=== PATIENT | female | born 1960 | race Hispanic/Latino ===

== ENCOUNTER 2019-04-20 11:38 | Inpatient (IN) | payer SELFPAY ==
[2019-04-20] MEDS ORDERED: LORazepam 2 MG/ML VIAL ONE (12:01)
[2019-04-20] MEDS ORDERED: NA CHLORIDE 0.9% 1,000 ML ONE ×3 (12:02→17:53)
[2019-04-20 12:12] LABS: Protime INR 1.18
--- NOTE | 2019-04-20 12:23 | RAD REPORT ---
EXAM DESCRIPTION: CT - Head Brain Wo Cont - 04/20/2019 12:11 pm CLINICAL HISTORY: Alteration of awareness/confusion COMPARISON: 2017 TECHNIQUE: Computed axial tomography of the head was obtained. IV contrast was not requested. All CT scans are performed using dose optimization technique as appropriate and may include automated exposure control or mA/KV adjustment according to patient size. FINDINGS: An intracranial bleed is not seen . The ventricles are normal in caliber. No extra-axial fluid collection is noted. Fluid within the sinuses/ mastoids is not seen. IMPRESSION: No acute intracranial abnormality is seen. If patient's symptoms persist MRI of the bra in would be recommended.
[2019-04-20 12:33] LABS: Salicylates Level 8.7 mg/dL (2.8-20)
[2019-04-20 12:38] LABS: Arterial Blood Carboxyhemoglob 1.4 % (0-1.5); Blood Gas Oxyhemoglobin 93.8 % (94-97); Blood O2 Saturation 95.9 % (92-98.5)
[2019-04-20 12:45] LABS: Barbiturates NEGATIVE (NEGATIVE); Benzodiazepines NEGATIVE (NEGATIVE); Cocaine NEGATIVE (NEGATIVE); METHAMPHETAM NEGATIVE (NEGATIVE); Methadone NEGATIVE (NEGATIVE); Opiates NEGATIVE (NEGATIVE); Phencyclidine NEGATIVE (NEGATIVE); THC Cannibis NEGATIVE (NEGATIVE)
[2019-04-20 13:02] LABS: Absolute Lymphocytes (CBC) 1.7 K/uL (0.7-4.9); Basophils % 0.5 % (0-1.3); Hematocrit 42.7 % (36.0-45.0); Lymphocytes % 8.9 % (15.3-44.8); MPV 9.3 fL (7.6-11.3); RBC Red Blood Cell Count 4.49 M/uL (3.86-4.86)
[2019-04-20 13:11] LABS: ALT/SGPT 32 U/L (12-78); Albumin 3.3 g/dL (3.4-5.0); Alkaline Phosphatase 457 U/L (45-117); BUN Blood Urea Nitrogen 23 mg/dL (7-18); Bicarbonate 27 mmol/L (21-32); Potassium 3.3 mmol/L (3.5-5.1); Protein, Total 8.6 g/dL (6.4-8.2); Sodium Level 143 mmol/L (136-145); Troponin (Emerg Dept Use Only) < 0.02 ng/mL (0.0-0.045)
[2019-04-20 13:21] LABS: AST/SGOT 37 U/L (15-37); Bilirubin Direct 0.5 mg/dL (0-0.2); Creatine Phosphokinase 596 U/L (26-192)
[2019-04-20 13:25] LABS: Glucose Level 452 mg/dL (74-106)
[2019-04-20] MEDS ORDERED: CEFEPIME 1 GM/100 ML BAG IV ONE (13:37)
[2019-04-20 13:53] LABS: Urine Blood TRACE (NEG); Urine Glucose 2+ (NEG); Urine Protein 2+ (NEG); Urine Specific Gravity 1.015 (1.005-1.030)
[2019-04-20 13:54] LABS: Blood Morphology Comment NOT SEEN (NOT SEEN); Platelet Estimate ADEQ; Urine White Blood Cell Casts OK
--- NOTE | 2019-04-20 13:54 | EDPHYS ---
Physician Documentation [facility] Name: Ebony Smith Age: 58 yrs Sex: Female : 1960 Arrival Date: 04/20/2019 Time: 11:47 Bed 7 Private MD: ED Physician Jaime Lovett HPI: 04/20 13:51 This 58 yrs old Female presents to ER via EMS with complaints of Altered jr8 Mental Status. 13:51 The patient presents with decreased mental status. Onset: The symptoms/episode jr8 began/occurred today. Possible causes: CVA or TIA, drug use, head injury, seizure, sepsis. Associated signs and symptoms: Pertinent positives: nausea, vomiting, Pertinent negatives: abdominal pain, combativeness, diaphoresis, diarrhea. Current symptoms: In the emergency department the patient's symptoms are unchanged from the initial presentation. Patient's baseline: Neuro: alert and fully oriented, The patient has a previous history of bipolar, schizophrenia, seizures. EMS states that family on scene had reported for the last five days she had not been acting herself, vomiting after eating. Upon EMS arrival pt was acting "stubborn" but was speaking and interacting with them, just before arrival pt stopped speaking and began looking around room and having facial twitches.. Historical: - Allergies: 11:52 No Known Allergies; jl7 - Home Meds: 11:52 divalproex 500 mg Oral Tb24 2 tabs at bedtime [Active]; lithium carbonate 450 mg Oral jl7 TbER [Active]; quetiapine 400 mg Oral tab [Active]; - PMHx: 11:52 Bipolar disorder; Schizophrenia; Seizures; jl7 - PSHx: 11:52 Tubal ligation; jl7 - Immunization history:: Adult Immunizations unknown. - Social history:: Smoking status: unknown. - Ebola Screening: : No symptoms or risks identified at this time. ROS: 13:51 Unable to obtain ROS due to altered mental status, patient being uncooperative, pt not jr8 speaking. Exam: 13:51 Constitutional: This is a well developed, well nourished patient who is awake, but jr8 will not respond verbally although eyes open, looking around room Head/Face: Normocephalic, atraumatic. Eyes: Pupils equal round and reactive to light, extra-ocular motions intact. Lids and lashes normal. Conjunctiva and sclera are non-icteric and not injected. Cornea within normal limits. Periorbital areas with no swelling, redness, or edema. Neck: Trachea midline, no thyromegaly or masses palpated, and no cervical lymphadenopathy. Supple, full range of motion without nuchal rigidity, or vertebral point tenderness. No Meningismus. Chest/axilla: Normal chest wall appearance and motion. Nontender with no deformity. No lesions are appreciated. Cardiovascular: Regular rate and rhythm with a normal S1 and S2. No gallops, murmurs, or rubs. Normal PMI, no JVD. No pulse deficits. Respiratory: Lungs have equal breath sounds bilaterally, clear to auscultation and percussion. No rales, rhonchi or wheezes noted. No increased work of breathing, no retractions or nasal flaring. Abdomen/GI: Soft, non-tender, with normal bowel sounds. No distension or tympany. No guarding or rebound. No evidence of tenderness throughout. Back: No spinal tenderness. No costovertebral tenderness. Full range of motion. MS/ Extremity: Pulses equal, no cyanosis. Neurovascular intact. Neuro: Awake and alert, Looking around exam room, responds to pain, closes eyes with approriate stimulus. Does not appear to be able or willing to follow verbal commands Vital Signs: 11:52 BP 131 / 85; Pulse 66; Resp 15 S; Pulse Ox 98% on R/A; jl7 12:30 BP 158 / 80; Pulse 66; Resp 16 S; Temp 98.2(TE); Pulse Ox 97% on R/A; ch 13:00 BP 124 / 92; Pulse 67; Resp 16 S; Pulse Ox 97% on R/A; ch 14:11 BP 151 / 76; Pulse 68; Resp 17; Pulse Ox 97% on R/A; ch 14:30 BP 146 / 66; Pulse 66; Resp 17 S; Pulse Ox 96% on R/A; jl7 15:15 BP 132 / 71; Pulse 66; Resp 16 S; Pulse Ox 97% on R/A; jl7 MDM: 11:47 Patient medically screened. jr8 13:50 Data reviewed: vital signs, nurses notes, lab test result(s), EKG, radiologic studies, jr8 CT scan, plain films. Data interpreted: Pulse oximetry: on room air is 98 %. Interpretation: normal. Counseling: I had a detailed discussion with the patient and/or guardian regarding: the historical points, exam findings, and any diagnostic results supporting the discharge/admit diagnosis, lab results, radiology results, the need for further work-up and treatment in the hospital. 04/20 11:48 Order name: Depakote; Complete Time: 13:40 04/20 11:48 Order name: [place]; Complete Time: 13:04/20 11:48 Order name: Acetaminophen; Complete Time: 13:04/20 11:48 Order name: Basic Metabolic Panel; Complete Time: 13:04/20 11:48 Order name: CBC with Diff; Complete Time: 13:58 04/20 11:48 Order name: ETOH Level; Complete Time: 13:04/20 11:48 Order name: Hepatic Function; Complete Time: 13:04/20 11:48 Order name: PT-INR; Complete Time: 12:04/20 11:48 Order name: Ptt, Activated; Complete Time: 12:04/20 11:48 Order name: Salicylate; Complete Time: 13:35 04/20 11:48 Order name: Urine Drug Screen; Complete Time: 12:49 04/20 11:48 Order name: Troponin (emerg Dept Use Only); Complete Time: 13:40 04/20 11:48 Order name: CK; Complete Time: 13:40 04/20 11:48 Order name: Procalcitonin; Complete Time: 13:00 04/20 11:48 Order name: CT Head Brain wo Cont; Complete Time: 12:40 04/20 11:48 Order name: Lactate; Complete Time: 13:23 04/20 11:48 Order name: Osmolality, Serum; Complete Time: 13:04/20 11:48 Order name: Ketone, Serum; Complete Time: 13:40 04/20 11:48 Order name: ABG; Complete Time: 13:35 04/20 11:54 Order name: glucometer results - FOR PT WITH NO ID jl7 04/20 11:59 Order name: Glucose, Ancillary Testing EDMS 04/20 12:54 Order name: Urine Dipstick--Ancillary (enter results); Complete Time: 13:58 04/20 13:07 Order name: CBC Smear Scan; Complete Time: 13:58 [facility] 04/20 13:25 Order name: Blood Culture Adult (2) [facility] 04/20 13:25 Order name: Urine Microscopic Only; Complete Time: 14:43 [facility] 04/20 13:26 Order name: XRAY Chest (1 view); Complete Time: 15:15 [facility] 04/20 15:34 Order name: Ammonia [facility] 04/20 15:38 Order name: Urinalysis [facility] 04/20 17:07 Order name: Glucose, Ancillary Testing [facility] 04/20 18:02 Order name: Lactate Sepsis 2 HR Follow-up [facility] 04/20 11:48 Order name: EKG; Complete Time: 11:50 [facility] 04/20 11:48 Order name: EKG - Nurse/Tech; Complete Time: 13:03 [facility] 04/20 11:48 Order name: IV Saline Lock; Complete Time: 12:54 [facility] 04/20 11:48 Order name: Labs collected and sent; Complete Time: 12:54 [facility] 04/20 11:48 Order name: Urine Dipstick-Ancillary (obtain specimen); Complete Time: 12:55 [facility] 04/20 12:18 Order name: Labs - recollect needed; Complete Time: 13:03 04/20 13:41 Order name: CT Abd/Pelvis - Without Contrast; Complete Time: 15:10 [facility] 04/20 15:34 Order name: NPO [facility] Administered Medications: 12:20 Drug: NS 0.9% 1000 ml Route: IV; Rate: 1000 ml; Site: right antecubital; jl7 13:45 Follow up: Response: No adverse reaction; IV Status: Completed infusion; IV Intake: jl7 1000ml 12:25 Drug: Ativan 1 mg Route: IVP; Site: right antecubital; jl7 13:23 Follow up: Response: No adverse reaction jl7 13:26 Drug: NS 0.9% 1000 ml Route: IV; Rate: 1000 ml; Site: right antecubital; jl7 14:30 Follow up: Response: No adverse reaction; IV Status: Completed infusion; IV Intake: jl7 1000ml 13:35 Drug: Cefepime 1 grams Route: IVPB; Rate: 200 ml/hr; Infused Over: 30 mins; Site: right jl7 antecubital; 14:15 Follow up: Response: No adverse reaction; IV Status: Completed infusion jl7 14:22 Drug: NS 0.9% with KCl 20 mEq/L 1000 ml Route: IV; Rate: 500 ml/hr; Site: right jl7 antecubital; 16:30 Follow up: Response: No adverse reaction; IV Status: Completed infusion; IV Intake: jl7 1000ml 14:54 Drug: vancoMYCIN 1 grams Route: IVPB; Infused Over: 2 hrs; Site: right antecubital; jl7 17:00 Follow up: Response: No adverse reaction; IV Status: Completed infusion; IV Intake: jl7 250ml Disposition: 04/20/19 13:53 Hospitalization ordered by Janine Champagne for Inpatient Admission. Preliminary diagnosis are Altered mental status, unspecified, [place] Toxicity , Other sepsis, Acute kidney failure. - Bed requested for Intensive Care Unit. - Status is Inpatient Admission. lp1 - Condition is Fair. - Problem is new. - Symptoms are unchanged. UTI on Admission? No Addendum: 04/22/2019 08:39 Co-signature as Attending Physician, Jaime Lovett MD I agree with the assessment and c carrillo plan of care. Signatures: Dispatcher [employer] Swathi Kong, MARTINE RN Jaime Duran MD MD cha Pena, Laura, RN RN lp1 Salbador Oh PA PA jr8 Samira Pereyra RN RN jl7 Ashleigh Murphy Corrections: (The following items were deleted from the chart) 04/20 13:59 13:53 Hospitalization Ordered by Janine Champagne MD for Inpatient Admission. Preliminary jr8 diagnosis is Altered mental status, unspecified; [place] Toxicity ; Other sepsis. Bed requested for Intensive Care Unit. Status is Inpatient Admission. Condition is Fair. Problem is new. Symptoms are unchanged. UTI on Admission? No. jr8 14:00 13:59 04/20/2019 13:53 Hospitalization Ordered by Janine Champagne MD for Inpatient eb Admission. Preliminary diagnosis is Altered mental status, unspecified; [place] Toxicity ; Other sepsis; Acute kidney failure. Bed requested for Intensive Care Unit. Status is Inpatient Admission. Condition is Fair. Problem is new. Symptoms are unchanged. UTI on Admission? No. jr8 14:43 14:00 04/20/2019 13:53 Hospitalization Ordered by Janine Champagne MD for Inpatient jr8 Admission. Preliminary diagnosis is Altered mental status, unspecified; [place] Toxicity ; Other sepsis; Acute kidney failure. Bed requested for Intensive Care Unit. Status is Inpatient Admission. Condition is Fair. Problem is new. Symptoms are unchanged. UTI on Admission? No. eb 15:58 14:43 04/20/2019 13:53 Hospitalization Ordered by Janine Champagne MD for Inpatient eb Admission. Preliminary diagnosis is Altered mental status, unspecified; [place] Toxicity ; Other sepsis; Acute kidney failure. Bed requested for Intensive Care Unit. Status is Inpatient Admission. Condition is Fair. Problem is new. Symptoms are unchanged. UTI on Admission? No. jr8 15:58 15:58 04/20/2019 13:53 Hospitalization Ordered by Janine Champagne MD for Inpatient eb Admission. Preliminary diagnosis is Altered mental status, unspecified; [place] Toxicity ; Other sepsis; Acute kidney failure. Bed requested for [facility] ER HOLD. Status is Inpatient Admission. Condition is Fair. Problem is new. Symptoms are unchanged. UTI on Admission? No. eb 18:53 15:58 04/20/2019 13:53 Hospitalization Ordered by Janine Champagne MD for Inpatient dw Admission. Preliminary diagnosis is Altered mental status, unspecified; [place] Toxicity ; Other sepsis; Acute kidney failure. Bed requested for [facility] ER HOLD. Status is Inpatient Admission. Condition is Fair. Problem is new. Symptoms are unchanged. UTI on Admission? No. eb 19:35 18:53 04/20/2019 13:53 Hospitalization Ordered by Janine Champagne MD for Inpatient lp1 Admission. Preliminary diagnosis is Altered mental status, unspecified; [place] Toxicity ; Other sepsis; Acute kidney failure. Bed requested for Intensive Care Unit. Status is Inpatient Admission. Condition is Fair. Problem is new. Symptoms are unchanged. UTI on Admission? No. dw
--- NOTE | 2019-04-20 13:54 | ER ---
Nurse's Notes [facility] Name: Ebony Smith Age: 58 yrs Sex: Female : 1960 Arrival Date: 04/20/2019 Time: 11:47 Bed 7 Private MD: Diagnosis: Altered mental status, unspecified;[place] Toxicity ;Other sepsis;Acute kidney failure Presentation: 04/20 11:49 Presenting complaint: EMS states: Pt's reports she has been laying in bed for 5 jl7 days, she will eat but throws up, does not verbally respond. Transition of care: patient was not received from another setting of care. Onset of symptoms was April 15, 2019. Risk Assessment: Do you want to hurt yourself or someone else? Unable to obtain. Initial Sepsis Screen: Does the patient meet any 2 criteria? Altered Mental Status. No. Patient's initial sepsis screen is negative. Does the patient have a suspected source of infection? No. Patient's initial sepsis screen is negative. Care prior to arrival: None. 11:49 Method Of Arrival: EMS: [facility] 11:49 Acuity: SOILA 2 jl7 Triage Assessment: 11:54 General: Appears ill, Behavior is agitated, restless, uncooperative, Pt appears to jl shake intermittently, pulls away from painful stimuli, stares wide-eyed but does not respond verbally. . Pain: Unable to use pain scale. Neuro: Level of Consciousness is awake, Pupils are PERRLA. Cardiovascular: Patient's skin is warm and dry. Respiratory: Airway is patent Respiratory effort is even, unlabored, Respiratory pattern is regular, symmetrical. GI: Abdomen is round non-distended. Historical: - Allergies: 11:52 No Known Allergies; jl7 - Home Meds: 11:52 divalproex 500 mg Oral Tb24 2 tabs at bedtime [Active]; lithium carbonate 450 mg Oral jl7 TbER [Active]; quetiapine 400 mg Oral tab [Active]; - PMHx: 11:52 Bipolar disorder; Schizophrenia; Seizures; jl7 - PSHx: 11:52 Tubal ligation; jl7 - Immunization history:: Adult Immunizations unknown. - Social history:: Smoking status: unknown. - Ebola Screening: : No symptoms or risks identified at this time. Screenin:52 Abuse screen: unable to obtain. Nutritional screening: unable to obtain. Tuberculosis [facility] screening: No symptoms or risk factors identified. Fall Risk Secondary diagnosis (15 points) seizures, IV access (20 points). Ambulatory Aid- None/Bed Rest/Nurse Assist (0 pts). Gait- Weak (10 pts.). Mental Status- Overestimates/Forgets Limitations (15 pts.). Total Oliveira Fall Scale indicates High Risk Score (45 or more points). Fall prevention measures have been instituted. Side Rails Up X 2 Placed Close to Nursing Station Frequent Obs/Assessments Occuring As available patient and family educated on Fall Prevention Program and Strategies. Assessment: 12:00 General: See triage assessment. [facility] 13:00 Reassessment: Patient appears in no apparent distress at this time. No changes from [facility] previously documented assessment. Patient and/or family updated on plan of care and expected duration. Pain level reassessed. Patient states symptoms have not improved. 14:30 Reassessment: Pt returned from [place], MARTINE Mercado, [facility], technology strategist and MARTINE Hogan at [facility] bedside to place Ardon. Pt appears agitated, eyes wide, attempting to grab at staff, VO for 1 mg Ativan IV administered with good results. 15:30 Reassessment: Pt laying in bed, eyes open, no verbal responses at this time. [facility] 16:00 Reassessment: Pt admitted to ER hold, see further documentation in [facility]. [facility] Vital Signs: 11:52 BP 131 / 85; Pulse 66; Resp 15 S; Pulse Ox 98% on R/A; jl7 12:30 BP 158 / 80; Pulse 66; Resp 16 S; Temp 98.2(TE); Pulse Ox 97% on R/A; ch 13:00 BP 124 / 92; Pulse 67; Resp 16 S; Pulse Ox 97% on R/A; ch 14:11 BP 151 / 76; Pulse 68; Resp 17; Pulse Ox 97% on R/A; ch 14:30 BP 146 / 66; Pulse 66; Resp 17 S; Pulse Ox 96% on R/A; jl7 15:15 BP 132 / 71; Pulse 66; Resp 16 S; Pulse Ox 97% on R/A; 7 ED Course: 11:47 Patient arrived in ED. ss 11:47 Salbador Oh PA is PHCP. jr8 11:47 Jaime Lovett MD is Attending Physician. jr8 11:49 Samira Pereyra, RN is Primary Nurse. jl7 11:51 Triage completed. jl7 11:52 Arm band placed on right wrist. jl7 11:52 Patient has correct armband on for positive identification. Placed in gown. Bed in low jl7 position. Call light in reach. Side rails up X2. Seizure precautions initiated. monitoring engineer on. Pulse ox on. NIBP on. Warm blanket given. 12:00 Initial lab(s) drawn, by ED staff, sent to lab. Urine collected: Ardon catheter jl7 specimen, clear. Inserted saline lock: 18 gauge in right antecubital area, using aseptic technique. Blood collected. 12:11 CT completed. Patient tolerated procedure well. Patient moved back from CT. bq 12:12 CT Head Brain wo Cont In Process Unspecified. EDMS 12:27 Ardon cath inserted, using sterile technique, 16 Fr., by technology strategist, balloon inflated, to jl7 gravity drainage, urine specimen collected. 13:03 EKG done, by ED staff, reviewed by Jaime Lovett MD. ms 13:10 Lab(s) recollected, by me, sent to lab. jl7 13:42 XRAY Chest (1 view) In Process Unspecified. EDMS 13:51 Janine Champagne MD is Hospitalizing Provider. jr8 14:10 CT completed. Patient moved to radiology. bq 14:13 CT Abd/Pelvis - Without Contrast In Process Unspecified. EDMS 19:00 No provider procedures requiring assistance completed. Patient admitted, IV remains in jl7 place. intact, No redness/swelling at site. 19:04 Primary Nurse role handed off by Samira Pereyra, RN ch Administered Medications: 12:20 Drug: NS 0.9% 1000 ml Route: IV; Rate: 1000 ml; Site: right antecubital; jl7 13:45 Follow up: Response: No adverse reaction; IV Status: Completed infusion; IV Intake: jl7 1000ml 12:25 Drug: Ativan 1 mg Route: IVP; Site: right antecubital; jl7 13:23 Follow up: Response: No adverse reaction jl7 13:26 Drug: NS 0.9% 1000 ml Route: IV; Rate: 1000 ml; Site: right antecubital; jl7 14:30 Follow up: Response: No adverse reaction; IV Status: Completed infusion; IV Intake: jl7 1000ml 13:35 Drug: Cefepime 1 grams Route: IVPB; Rate: 200 ml/hr; Infused Over: 30 mins; Site: right jl7 antecubital; 14:15 Follow up: Response: No adverse reaction; IV Status: Completed infusion jl7 14:22 Drug: NS 0.9% with KCl 20 mEq/L 1000 ml Route: IV; Rate: 500 ml/hr; Site: right jl7 antecubital; 16:30 Follow up: Response: No adverse reaction; IV Status: Completed infusion; IV Intake: jl7 1000ml 14:54 Drug: vancoMYCIN 1 grams Route: IVPB; Infused Over: 2 hrs; Site: right antecubital; jl7 17:00 Follow up: Response: No adverse reaction; IV Status: Completed infusion; IV Intake: jl7 250ml Intake: 13:45 IV: 1000ml; Total: 1000ml. jl7 14:30 IV: 1000ml; Total: 2000ml. jl7 16:30 IV: 1000ml; Total: 3000ml. jl7 17:00 IV: 250ml; Total: 3250ml. jl7 Outcome: 13:53 Decision to Hospitalize by Provider. jr8 19:00 Admitted to ICU accompanied by nurse, via stretcher, room 6, on monitor, with chart, jl7 Report called to ICU Nurse 19:00 Condition: stable 19:00 Discharge instructions given to patient, Instructed on the need for admit, Demonstrated understanding of pt unable to verbalize understanding at this time. 19:35 Patient left the ED. lp1 Signatures: Dispatcher [employer] EDMS Jess Starks, RN RN Ary Espino Maria ms Smirch, Shelby, RN Renay Campbell RN RN lp1 Salbador Oh PA PA jr8 Samira Pereyra RN RN jl7 Corrections: (The following items were deleted from the chart) 14:11 12:00 General: See triage assessment. [email or web address] 14:11 13:00 Reassessment: Patient appears in no apparent distress at this time. No changes jl7 from previously documented assessment. Patient and/or family updated on plan of care and expected duration. Pain level reassessed. Patient states symptoms have not improved. ch
[2019-04-20] MEDS ORDERED: NS KCL 20MEQ 1,000 ML IV ONE (13:59)
[2019-04-20 14:00] LABS: Urine Bacteria <20 /HPF (<20); Urine RBC <5 /HPF (NONE SEEN)
[2019-04-20 14:01] LABS: Urine Culture Reflex Order NOT NEEDED
--- NOTE | 2019-04-20 14:48 | RAD REPORT ---
EXAM DESCRIPTION: CT - Abdomen Pelvis Wo Contrast - 04/20/2019 2:13 pm CLINICAL HISTORY: Abdominal pain sepsis COMPARISON: 2017 TECHNIQUE: Computed axial tomography of the abdomen and pelvis was obtained. IV and oral contrast we re not requested. All CT scans are performed using dose optimization technique as appropriate and may include automated exposure control or mA/KV adjustment according to patient size. FINDINGS: The evaluation of solid organs, vessels and bowel is limited secondary to the lack of con trast administration. Fatty liver. Mild hepatomegaly Spleen, pancreas, adrenals and kidneys appear grossly normal. The appendix is normal. There is no evidence of diverticulitis. Ardon catheter in place IMPRESSION: Fatty liver. Mild hepatomegaly
[2019-04-20] MEDS ORDERED: VANCOMYCIN/NS 1 gm 1 GM/250 ML BAG IV ONE (15:00)
--- NOTE | 2019-04-20 15:08 | RAD REPORT ---
EXAM DESCRIPTION: Rudy Single View04/20/2019 2:12 pm CLINICAL HISTORY: Sepsis COMPARISON: none FINDINGS: The lungs appear clear of acute infiltrate. The heart is mildly enlarged IMPRESSION: No acute abnormalities displayed
[2019-04-20] MEDS ORDERED: ACETAMINOPHEN 500 MG TAB PO PRN (15:31)
[2019-04-20] MEDS ORDERED: ONDANSETRON 4 MG/2 ML VIAL IV PRN (15:31)
[2019-04-20] MEDS ORDERED: PIPER/TAZO/NS 3.375gm 3.375 GM/100 ML BAG IV ONE ×2 (16:00)
[2019-04-20] MEDS: ENOXAPARIN 40 MG/0.4 ML SQ SCH (16:00)
[2019-04-20] MEDS ORDERED: VANCOMYCIN 1.25 GM in NA CHLORIDE 0.9% 250 ML IVPB SCH (16:00)
[2019-04-20] MEDS ORDERED: INSULIN -REGULAR HUMAN 50 UNIT/0.5 ML ML SQ SCH (16:30)
[2019-04-20] MEDS: NA CHLORIDE 0.9% 1,000 ML IV SCH (18:15)
[2019-04-20] MEDS ORDERED: ENOXAPARIN 40 MG/0.4 ML SQ ONE (18:40)
[2019-04-20 20:40] LABS: Urine Appearance CLEAR; Urine Bilirubin NEGATIVE (NEG); Urine Blood TRACE (NEG); Urine Color YELLOW; Urine Glucose 3+ (NEG); Urine Protein 1+ (NEG); Urine Specific Gravity 1.015 (1.005-1.030)
[2019-04-20 20:41] LABS: Urine Microscopic Reflex ORDER UMIC
[2019-04-20 20:51] LABS: Urine Bacteria <20 /HPF (<20); Urine Culture Reflex Order REFLEXED; Urine RBC <5 /HPF (NONE SEEN)
[2019-04-20] MEDS ORDERED: VANCOMYCIN 1.5 GM in NA CHLORIDE 0.9% 500 ML IVPB ONE (21:00)
[2019-04-20 22:35] LABS: Magnesium 3.3 mg/dL (1.8-2.4); Phosphorus 2.5 mg/dL (2.5-4.9); Potassium 3.5 mmol/L (3.5-5.1)
[2019-04-20] MEDS ORDERED: POTASSIUM PHOS IN 0.9 % NACL 15 MMOL/250 ML BAG IV ONE (22:47)
[2019-04-21] MEDS ORDERED: PIPER/TAZO/NS 3.375gm 3.375 GM/100 ML BAG IVPB SCH (01:00)
[2019-04-21 05:25] LABS: Basophils % 0.4 % (0-1.3); Hematocrit 38.6 % (36.0-45.0); Lymphocytes % 10.3 % (15.3-44.8); MPV 8.3 fL (7.6-11.3); RBC Red Blood Cell Count 4.04 M/uL (3.86-4.86)
[2019-04-21] MEDS: NA CHLORIDE 0.9% 1,000 ML IV SCH (05:35)
[2019-04-21 06:41] LABS: Albumin 2.8 g/dL (3.4-5.0); Bilirubin Total 0.7 mg/dL (0.2-1.0); Magnesium 3.3 mg/dL (1.8-2.4); Phosphorus 3.3 mg/dL (2.5-4.9); Potassium 3.8 mmol/L (3.5-5.1)
[2019-04-21] MEDS ORDERED: KCL 20 MEQ/100 mL IVPB 20 MEQ/100 ML BAG IV SCH (07:00)
[2019-04-21] MEDS ORDERED: GLUCAGON 1 MG/VIAL IM PRN (07:25)
[2019-04-21] MEDS ORDERED: D50W 25 GM/50 ML SYRINGE IV PRN (07:25)
--- NOTE | 2019-04-21 07:46 | P.HP ---
Certification for Inpatient Patient admitted to: Inpatient With expected LOS: >2 Midnights Patient will require the following post-hospital care: None Practitioner: I am a practitioner with admitting privileges, knowledge of patient current condition, hospital course, and medical plan of care. Services: Services provided to patient in accordance with Admission requirements found in Title 42 Section 412.3 of the Code of Federal Regulations Patient History Date of Service: 04/20/19 Reason for admission: AMS History of Present Illness: Patient is a 58-year-old female who presented to the hospital with altered mental status. She has history of psychiatric illnesses including major depressive disorder with suicidal ideations, schizophrenia, bipolar disorder. For the last 6 days she has been vomiting everything she eats. She has not been admitted hold anything down. She really was not interacting today so the family got concerned. She was brought into the hospital for further evaluation. In the ER, she had multiple imaging studies performed which were not unremarkable. Initial lab testing revealed a leukocytosis. However, there was no source of infection that was identified. Patient be admitted to the ICU for further evaluation. She appears to be having uncontrolled psychiatric issues. Will stabilize her medically and she may need referral to a psychiatric facility. Allergies No Known Drug Allergies Allergy (Verified 04/20/19 20:30) Unknown Home medications list reviewed: No - Past Medical/Surgical History Has patient received pneumonia vaccine in the past: No -: Major depressive disorder -: Schizophrenia -: Seizure disorder -: Bipolar disorder -: Suicidal ideation -: Bilateral tubal ligation - Family History Father Family History: Reviewed- Non-Contributory - Social History Smoking Status: Never smoker Alcohol use: No CD- Drugs: No Caffeine use: No Review of Systems 10-point ROS is otherwise unremarkable Physical Examination - Vital Signs Temperature: 98.4 F Blood Pressure: 130/50 Pulse: 66 Respirations: 18 Pulse Ox (%): 97 - Physical Exam General: Other (Awake but she is not following commands; appears to have intentional tremors because they wax and wane) HEENT: Atraumatic, PERRLA, Mucous membr. moist/pink, EOMI, Sclerae nonicteric Neck: Supple, 2+ carotid pulse no bruit, No LAD, Without JVD or thyroid abnormality Respiratory: Clear to auscultation bilaterally, Normal air movement Cardiovascular: Regular rate/rhythm, Normal S1 S2 Gastrointestinal: Normal bowel sounds, Soft and benign, Non-distended, No tenderness Musculoskeletal: No tenderness Integumentary: No rashes Neurological: Abnormal gait, Abnormal speech, Abnormal strength, Abnormal affect , Dementia Lymphatics: No axilla or inguinal lymphadenopathy - Studies Laboratory Data (last 24 hrs) 04/20/19 12:48: WBC 19.0 H, Hgb 14.1, Hct 42.7, Plt Count 322 04/20/19 12:48: Sodium 143, Potassium 3.3 L, BUN 23 H, Creatinine 1.73 H, Glucose 452 H*, Total Bilirubin 1.0, AST 37, ALT 32, Alkaline Phosphatase 457 H 04/20/19 11:53: PT 13.8 H, INR 1.18, APTT 33.7 Assessment & Plan - Problems (Diagnosis) (1) Leukocytosis Current Visit: Yes Status: Acute (2) Schizophrenia Current Visit: Yes Status: Acute (3) Seizures Current Visit: Yes Status: Acute (4) Acute kidney injury Current Visit: Yes Status: Acute (5) Intractable nausea and vomiting Current Visit: Yes Status: Acute (6) Acute psychosis Current Visit: Yes Status: Acute (7) Hyperglycemia Current Visit: Yes Status: Acute - Plan Plan: 1. IV hydration 2. Monitor lithium level and renal function closely 3. Resume antipsychotics 4. Long-acting insulin and check hemoglobin A1c 5. May need psychiatric referral once medically stable 6. Blood cultures pending 7. Continue with IV antibiotics 8. GI and DVT prophylaxis Discharge Plan: Home Plan to discharge in: Greater than 2 days - Advance Directives Does patient have a Living Will: No Does patient have a Durable POA for Healthcare: No - Code Status/Comfort Care Code Status Assessed: Yes Code Status: Full Code Critical Care: Yes Time Spent Managing PTS Care (In Minutes): 40
[2019-04-21] MEDS ORDERED: INSULIN GLARGINE 100 UNITS/ML SQ ONE (08:00)
[2019-04-21] MEDS: PIPER/TAZO/NS 3.375gm 3.375 GM/100 ML BAG IVPB SCH ×2 (08:31→16:16)
[2019-04-21] MEDS: INSULIN -REGULAR HUMAN 50 UNIT/0.5 ML ML SQ SCH ×5 (08:31→23:07)
[2019-04-21] MEDS: D5W 1,000 ML IV SCH ×2 (08:31→20:49)
[2019-04-21] MEDS: ENOXAPARIN 40 MG/0.4 ML SQ SCH (08:32)
--- NOTE | 2019-04-21 09:05 | EKG ---
Test Date: 2019-04-20 Test Time: 13:01:35 [employer]: MEASUREMENT RESULTS: Intervals: Rate: 65 MD: 142 QRSD: 112 QT: 536 QTc: 557 [place]: P: 65 MD: 142 QRS: -3 T: 100 INTERPRETIVE STATEMENTS: Normal sinus rhythm ST & T wave abnormality, consider anterolateral ischemia Prolonged QT Abnormal ECG Compared to ECG 02/26/2016 10:51:04 ST (T wave) deviation now present Possible ischemia now present Prolonged QT interval now present T-wave abnormality no longer present Electronically Signed On 04-21-19 09:04:42 CDT by Ziyad Peña
[2019-04-21] MEDS ORDERED: INFLUENZA VACCINE (for 3y+) 0.5 ML DOSE IMVAC ONE (10:00)
[2019-04-21 11:21] LABS: Absolute Lymphocytes (CBC) 2.1 K/uL (0.7-4.9); Basophils % 0.6 % (0-1.3); Hematocrit 38.5 % (36.0-45.0); Lymphocytes % 12.2 % (15.3-44.8); MPV 8.4 fL (7.6-11.3); RBC Red Blood Cell Count 4.02 M/uL (3.86-4.86)
[2019-04-21 11:37] LABS: Magnesium 3.4 mg/dL (1.8-2.4); Potassium 3.9 mmol/L (3.5-5.1)
--- NOTE | 2019-04-21 13:21 | P.PN ---
Subjective Date of Service: 04/21/19 Chief Complaint: AMS Review of Systems 10-point ROS is otherwise unremarkable Physical Examination - Vital Signs Temperature: 98.4 F Blood Pressure: 145/74 Pulse: 66 Respirations: 23 Pulse Ox (%): 95 - Physical Exam General: In no apparent distress, Unresponsive HEENT: Atraumatic, PERRLA, EOMI Neck: Supple, JVD not distended Respiratory: Normal air movement, Expiratory wheezes, Inspiratory wheezes Cardiovascular: Regular rate/rhythm, Normal S1 S2 Gastrointestinal: Normal bowel sounds, No tenderness Musculoskeletal: No tenderness Integumentary: No rashes Neurological: Normal tone, Normal affect, Abnormal speech Lymphatics: No axilla or inguinal lymphadenopathy - Studies Laboratory Data (last 24 hrs) 04/20/19 12:48: Glucose 452 H*, AST 37 Medications List Reviewed: Yes Assessment And Plan - Current Problems (Diagnosis) (1) Unresponsive Current Visit: Yes Status: Acute Plan: Pt still remains Unresponsive at this time. Due to Electrolyte abnormalities -NA and CL elevated at this time. -Started on IV D5W at this time -Head CT in the ER negative -Brain MRI pending for marta -Will monitor in ICU at this time (2) Sepsis Current Visit: Yes Status: Acute Plan: Sepsis with Unknown Source -On IV vanc and zosyn at this time -Blood and urine Culture pending at this time -On IV fluids at this time Qualifiers: Sepsis type: sepsis due to unspecified organism Sepsis acute organ dysfunction status: unspecified Qualified Code(s): A41.9 - Sepsis, unspecified organism (3) Seizures Current Visit: Yes Status: Chronic - Plan pending clinical Improvement Discharge Plan: Other Plan to discharge in: Greater than 2 days - Code Status/Comfort Care Code Status Assessed: Yes Critical Care: No
[2019-04-22] MEDS: PIPER/TAZO/NS 3.375gm 3.375 GM/100 ML BAG IVPB SCH ×3 (00:24→17:59)
[2019-04-22] MEDS: INSULIN -REGULAR HUMAN 50 UNIT/0.5 ML ML SQ SCH ×6 (03:08→23:27)
[2019-04-22 05:08] LABS: Absolute Lymphocytes (CBC) 1.4 K/uL (0.7-4.9); Basophils % 0.7 % (0-1.3); Hematocrit 37.7 % (36.0-45.0); MPV 8.4 fL (7.6-11.3); RBC Red Blood Cell Count 3.93 M/uL (3.86-4.86)
[2019-04-22 05:33] LABS: Albumin 2.8 g/dL (3.4-5.0); Bilirubin Total 0.7 mg/dL (0.2-1.0); Magnesium 3.1 mg/dL (1.8-2.4); Potassium 3.9 mmol/L (3.5-5.1); Protein, Total 6.7 g/dL (6.4-8.2)
[2019-04-22] MEDS: D5W 1,000 ML IV SCH ×3 (08:02→23:45)
[2019-04-22] MEDS: ENOXAPARIN 40 MG/0.4 ML SQ SCH (08:02)
[2019-04-22] MEDS: VANCOMYCIN 1.75 GM in NA CHLORIDE 0.9% 500 ML IVPB SCH (08:59)
[2019-04-22] MEDS ORDERED: VANCOMYCIN 1.75 GM in NA CHLORIDE 0.9% 500 ML IVPB SCH (09:00)
[2019-04-22 12:13] LABS: Phosphorus 3.3 mg/dL (2.5-4.9); Potassium 4.5 mmol/L (3.5-5.1)
--- NOTE | 2019-04-22 15:06 | RAD REPORT ---
EXAM DESCRIPTION: RAD - Abdomen 1 View (KUB) - 04/22/2019 2:55 pm CLINICAL HISTORY: Dobhoff placement COMPARISON: No comparisons FINDINGS: Feeding tube has been placed. Tip is curled in the proximal stomach. No abnormal bend or kink of the tubing. Stomach is decompressed.
[2019-04-22] MEDS: VALPROIC ACID 250 MG/5 ML OSYR PO SCH (16:55)
--- NOTE | 2019-04-22 18:12 | PN ---
Date of Progress Note: 04/22/2019 Subjective: Patient seen and examined. Chart reviewed and case discussed with RN. No family at the bedside. The patient still very much confused. Case discussed with Dr. Gonsalves. Medications list reviewed. Code Status: Full. Physical Examination: Vital Signs: Temperature 99.2, heart rate 58, blood pressure 138/73, respirations 14, O2 97% on room air. General: Asleep but arousable, appears to be in some mild distress, obese female, ill-appearing. CV: S1, S2. Regular rate and rhythm. Peripheral pulses present. Respiratory: Diminished breath sounds, some rhonchi heard. No wheezing or stridor. No use of acces santos muscles. Abdomen: Abdomen is soft, nontender, nondistended. Positive bowel sounds. Extremities: No clubbing, cyanosis, or edema. Neuro: Unable to properly assess due to patient's medical condition. She does respond to verbal sti muli and has weakness on the left upper extremity. No facial asymmetry. Nonverbal. Laboratory Data: Sodium 164, potassium 4.5, chloride 137, CO2 24, BUN 15, creatinine 1.41, glucose 2 91, calcium 8.7, phosphorus 3.3, magnesium 3. [place] level is 1. WBC 11.6, H and H of 13 and 37.7, platelets 257, neutrophils 77%. Blood cultures no growth to date. Urine culture no growth, prelim report. Assessment And Plan: A 58-year-old female with. 1.Acute metabolic encephalopathy. The patient is still not very much responsive, does not follow an y commands, likely due to hypernatremia, rule out cerebrovascular accident. We will obtain MRI of th e brain. Patient has some left-sided weakness. Initial head CT was negative. 2.Sepsis, unclear source. Continue with broad-spectrum IV antibiotics. Cultures are negative to da te. Continue with IV fluids. 3.Severe hypernatremia, improving. Sodium is 164, improved from earlier this morning. We will cons ult Nephrology. Continue D5W. Rate has been increased. 4.History of seizure disorder. The possibility of status epilepticus is present. We will obtain EE G. 5.Acute kidney injury. Creatinine is improving. We will continue to monitor. Baseline is normal. Likely due to sepsis and acute dehydration. 6.Major depressive disorder. 7.Schizophrenia. 8.Bipolar disorder. Psychiatric medications have been held at this time. 9.Deep vein thrombosis prophylaxis addressed. The patient is on Lovenox. Valproic acid level was 6 1 on . Currently not on valproic acid, likely due to inability to safely swallow. We will switc h to IV. Plan: Nephrology consultation. Continue to monitor sodium level. Continue with slow correction to avoid central pontine myelinolysis. Follow up with MRI of the brain to rule out cerebrovascular acci dent. Continue to monitor in ICU setting. SA/MODL Voice ID: [id number] Report ID: [id number]
[2019-04-22] MEDS ORDERED: PANTOPRAZOLE 40MG TABLET PO SCH (21:00)
[2019-04-22] MEDS ORDERED: DIVALPROEX ER 250 MG TAB PO SCH (21:00)
[2019-04-23] MEDS: PIPER/TAZO/NS 3.375gm 3.375 GM/100 ML BAG IVPB SCH ×2 (00:25→08:37)
--- NOTE | 2019-04-23 02:23 | CON ---
Date of Consultation: 04/22/2019 Chief Complaint: Hypernatremia, hyperosmolar state, prerenal azotemia, acute kidney injury on chronic kidney disease. History Of Present Illness: Patient is admitted to ICU. She was found to have severe hypernatremia and was started on hypotonic fluids with D5W. On April 20, she was admitted to the hospital and was found to have sodium of 143, potassium 3.3, chloride 110, CO2 of 27, BUN 23, creatinine 1.73, glucose 452, calcium 9.6. Subsequently, she was treated for hyperglycemia, blood glucose has improved gradually, although patient was found to have hypernatremia. On April 21, sodium was 163 and chloride 137, potassium 3.8 , CO2 of 24, BUN 17, creatinine 1.32. Patient was started on D5W and sodium has not improved over the last 24 hours. Patient has multiple medical problems. On April 20, she came to the hospital with altered mental status. She has history of psychiatric illness including major depressive disorder with suicidal ideation, schizophrenia, bipolar disorder. She was evaluated by primary team and emergency room physician and was admitted to the hospital. Prior to this hospitalization, patient was complaining of vomiting at least for 6 days and generalized weakness. She cannot provide review of systems. She is not answering questions. She does not want to interact with medical staff. She was brought to the hospital by family members in the emergency room. Multiple radiology studies performed were unremarkable. Initial lab work showed leukocytosis. She appeared to have uncontrolled psychiatric issues. She was not able to cooperate with examination or with questioning about previous medical history. Review of Systems: Patient cannot provide review of systems. She does not answer questions, although she is awake. Past Medical History: Major depressive disorder, schizophrenia, seizure disorder, bipolar disorder, suicidal ideation, bilateral tubal ligation, diabetes mellitus. Family History: Unobtainable. Social History: No history of tobacco, alcohol, or illicit drugs. Physical Examination: Vital Signs: Blood pressure is 130/50, heart rate 66, respiratory rate 18, SpO2 of 97%, temperature 98.4. Eyes: Anicteric sclerae. EOMI. Ears, Nose, Mouth and Throat: Oral mucosa moist. No pallor. Neck: Supple. No bruits. Lungs: Clear to auscultation bilaterally. No rhonchi. No wheezing. Heart: S1, S2. No pericardial friction rub. Abdomen: Soft, benign, nontender. No rebound Extremities: No edema. No clubbing. No cyanosis. SKIN: warm and dry no oozing NEUROLOGIC: no tremor , CN intact Impression And Plan: 1. Patient has acute kidney injury with prerenal azotemia. Continue IV fluids. Avoid nephrotoxic medication. Patient was found to have severe hypernatremia. Patient is on IV fluids to control hypernatremia. Monitor renal function and electrolytes, adjust IV fluids accordingly. 2. Patient has been treated with lithium. [place] toxicity panel was done and lithium level is in acceptable ranges and improving. 3. Hyperglycemia. Patient will continue insulin. 4. Hypertension, controlled. Monitor blood pressure. 5. Electrolyte panel was done today and showed phosphorus of 3.3, magnesium of 3.0. Currently, patient is not on replacement with magnesium. Monitor electrolytes and re-evaluate magnesium and phosphorus level. THOMAS/MODL Voice ID: [id number] Report ID: [id number] [facility]PITALSam[facility]
[2019-04-23] MEDS: INSULIN -REGULAR HUMAN 50 UNIT/0.5 ML ML SQ SCH ×2 (03:22→08:37)
[2019-04-23] MEDS: D5W 1,000 ML IV SCH ×3 (04:08→20:00)
[2019-04-23 05:40] LABS: Albumin 2.7 g/dL (3.4-5.0); Bilirubin Total 0.6 mg/dL (0.2-1.0); Potassium 4.4 mmol/L (3.5-5.1); Protein, Total 6.8 g/dL (6.4-8.2)
--- NOTE | 2019-04-23 06:11 | RAD REPORT ---
EXAM DESCRIPTION: MRI - Brain W/Wo Cont - 04/22/2019 8:46 pm CLINICAL HISTORY: Transient alteration of awareness: Loss of consciousness COMPARISON: CT head April 20 TECHNIQUE: Sagittal and axial T1-weighted images were obtained. Axial PD/heavily T2-weighted and T2- FLAIR images were obtained along with axial DWI/ADC mapping sequences. Coronal heavily T2 weighted s equence obtained. Axial and coronal post-contrast T1-weighted images were also obtained. A 20 ml Mul tihance contrast following utilized. FINDINGS: Motion degradation is present on all sequences. Exam is felt to be sufficient for diagnost ic purposes. No intracranial hemorrhage, mass or acute infarction. There is no edema or shift of midline structur es. No extra-axial fluid collections. Menezes-matter/white matter junction is preserved. Signal voids a re seen as a normal finding in the major intracranial vessels. No significant atrophy and no measurab le chronic ischemic change. Ventricles are normal. No globe or orbital content abnormality. No sella or supra sella abnormality. Post-contrast images show normal enhancement. No dural thickening. Mastoid air cells and paranasal sinuses are clear. IMPRESSION: Negative contrast enhanced MRI of the Brain.
[2019-04-23 06:46] LABS: Absolute Lymphocytes (CBC) 2.2 K/uL (0.7-4.9); Lymphocytes % 19.8 % (15.3-44.8); MPV 8.4 fL (7.6-11.3); RBC Red Blood Cell Count 3.88 M/uL (3.86-4.86)
[2019-04-23] MEDS: ENOXAPARIN 40 MG/0.4 ML SQ SCH (08:37)
[2019-04-23] MEDS: VALPROIC ACID 250 MG/5 ML OSYR PO SCH (08:37)
[2019-04-23] MEDS: Pantoprazole (granules) 40 MG/BLIST PACKET FT SCH ×2 (08:38→20:07)
[2019-04-23] MEDS ORDERED: CEFEPIME 1 GM/VIAL IV SCH (10:49)
[2019-04-23] MEDS ORDERED: D50W 25 GM/50 ML SYRINGE IV PRN (11:17)
[2019-04-23] MEDS ORDERED: GLUCAGON 1 MG/VIAL IM PRN (11:17)
[2019-04-23 11:32] LABS: Urine Appearance CLEAR; Urine Bilirubin NEGATIVE (NEG); Urine Blood NEGATIVE (NEG); Urine Color YELLOW; Urine Glucose 3+ (NEG); Urine Protein NEGATIVE (NEG); Urine Specific Gravity 1.015 (1.005-1.030); Urine pH 6.5 (5.0-7.0)
[2019-04-23 11:33] LABS: Urine Microscopic Reflex NO UMIC
[2019-04-23 11:39] LABS: Urine Protein/Creatinine Ratio 0.41 ratio (<0.15)
[2019-04-23] MEDS: INSULIN -REGULAR HUMAN 100 UNIT in NA CHLORIDE 0.9% 100 ML IV SCH (11:50)
[2019-04-23] MEDS: CEFEPIME/SWI 1gm 10 ML IV SCH ×2 (11:51→20:06)
[2019-04-23] MEDS ORDERED: PHENYTOIN ER 100 MG CAP PO SCH (14:00)
--- NOTE | 2019-04-23 15:55 | PN ---
Date of Progress Note: 04/23/2019 Subjective: Patient was admitted with altered mental status. Patient on presentation had slightly l ower blood pressure. Patient received 3 L of normal saline on presentation and her sodium was in the normal upper limit of 143. Then the next day, her sodium in almost 18 hours jumped to 163, then sta yed as it is. Patient after that was switched to D5 half, then currently on D5. Her blood sugar is being elevated and her hemoglobin A1c found to be 12. Upon presentation, she did not have any DKA. Her blood sugar during the hospitalization was running in the 300s. Patient apparently on admission had polyuria of 6 L, was negative 1600 on the first day, then even on the other 2 days. Patient star richard to be more awake in the last 24 hours, followed simple command. Her lithium level was elevated a t presentation, then yesterday it was down to 1. Her urine analysis showed a specific gravity of 1.0 15. Objective: Vital Signs: Today, blood pressure 116/56, pulse of 52. Patient had urine output of 210 0 yesterday, today since the morning in the last 3 hours is almost 800. Chest: Clear to auscultation. Heart: S1, S2 regular. Abdomen: Soft, nontender. Extremities: No edema. Neuro: Follows simple command. Has involuntary movement in the face and in the hand. No tremor. Laboratory Data: Sodium 164, potassium 4.4, bicarb 25, chloride 134, BUN 14, creatinine 1.3, glucose 230. Hemoglobin A1c 12, calcium of 9, phosphorus 3.3, magnesium of 3. Albumin 2.7, corrected calci um is 10. Cortisol level is still pending. Procalcitonin 1.01. Urinalysis: Specific gravity of 1. 015, +2 protein. Medications: Current medications the patient is on include: 1.Zosyn. 2.Vancomycin. 3.Lovenox. 4.Valproic acid. 5.Zofran. 6.D5 at 75 per hour. Assessment And Plan: Acute kidney injury, mostly secondary to poor perfusion, acute tubular necrosis , possible component of the lithium toxicity manifested with polyuria that the patient has. Reviewin g the record for the patient, patient's baseline creatinine back in April was around 1.2 with GFR o f 43 back in April 2017. 1.I am going to go ahead and increase D5 to 100 per hour. We will start the patient on free water o f 250 q.4 hours. I am going to go ahead and send for repeated lithium level, repeated UA and urine e lectrolytes now, then after 8 hours if lithium level is still elevated, we will consider patient has lithium toxicity. At that time, we are going to need to do dialysis. 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 At mary jane t time, we are going to treat her as diabetes insipidus. 2.Hypernatremia, possibly secondary to diabetes insipidus, secondary to lithium. a.I am going to increase D5 and place the patient on insulin drip. I agree with holding the Zosyn a nd we will start the patient on free water. We will monitor. 3.Altered mental status, possibly medication induced/secondary to hypernatremia. I agree with gaby roach antibiotic. We will follow up culture, follow up Neurology, change IV fluid and free water, and w e will monitor. 4.Diabetes. We will start the patient on insulin drip. 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 6.Hyperchloremia, IV fluid induced. Fluid has been changed. We will follow up. Case discussed with Dr. Sandhu, agreed on the plan. Discussed with the staff. MATTEO Voice ID: [id number] Report ID: [id number]
[2019-04-23] MEDS: PHENYTOIN 125 MG/5 ML ORAL.SUSP PO SCH ×2 (16:02→20:06)
--- NOTE | 2019-04-23 18:28 | PN ---
Date of Progress Note: 04/23/2019 Subjective: Patient seen and examined. Chart reviewed and case discussed with RN, Dr. Gonsalves, and Dr. oMntero. Patient seems to be somewhat more cooperative, following commands. Medication List: Reviewed. Physical Examination: Vital Signs: Temperature 98.5, heart rate 49, blood pressure 122/72, respirations 16, O2 97% on room air. General: Awake, does not appear to be in any distress. Slightly ill-appearing female, obese. CV: S1 and S2. Sinus bradycardia. Peripheral pulses present. Respiratory: Moving air well bilaterally. No wheezing or stridor. Gastrointestinal: Abdomen is soft, nondistended. Positive bowel sounds. No guarding or rigidity. Extremities: No clubbing, cyanosis, or edema. Neuro: Patient is nonverbal; however, does follow commands. Moves all 4 extremities. Laboratory Data: Sodium 164, potassium 4.4, chloride 134, CO2 of 25, BUN 14, creatinine 1.38, glucos e 230, calcium 9, albumin 2.7. Procalcitonin 0.36, cortisol 25.18. WBC 11.2, H and H 12.3 and 38, p latelets 207. Blood cultures preliminarily showing no growth. Urine culture, no growth. Final KUB shows feeding tube in the stomach. MRI of the brain, negative contrast enhanced MRI of the brain. Assessment And Plan: A 58-year-old female with. 1.Acute metabolic encephalopathy, likely due to hypernatremia. Cerebrovascular accident has been ru led out. Possible seizure disorder. We will consult Neurology. Obtain EEG. 2.Sepsis, unclear source. Cultures negative to date. We will switch Zosyn to cefepime as the Zosyn is run with sodium piggyback to avoid further increase in sodium. Patient received 3 L bolus in the ER for sepsis. White count has trended down. 3.Severe hypernatremia. Still around the same level. D5W with rate increased. We will continue to monitor, avoid any other extra sources of sodium, unclear etiology, may be due to lack of free water . We will add water flushes with tube feeds. Continue to monitor closely. We will need to correct slowly to avoid central pontine myelinolysis. 4.History of seizure disorder. EEG has been ordered. Neurology consultation has been obtained. Dr Beth Motnero recommends sodium channel rolly such as Dilantin. We will decrease dose of valproic aci d and start on Dilantin t.i.d. 5.Acute kidney injury. Creatinine stabilized, still above baseline. We will continue to monitor, l ikely due to sepsis, possibly renal injury due to lithium toxicity. 6.[place] toxicity. Initially, levels were elevated at 2.5, now normal. Patient did exhibit diabet es insipidus type symptoms with significant amount of urinary output. May need dialysis. We will de kerline to Nephrology. 7.Major depressive disorder. 8.Schizophrenia. 9.Bipolar disorder. 10.Deep venous thrombosis prophylaxis with Lovenox. Plan: Continue to monitor in ICU setting. SA/MODL Voice ID: [id number] Report ID: [id number]
[2019-04-23] MEDS: VANCOMYCIN 1.75 GM in NA CHLORIDE 0.9% 500 ML IVPB SCH (22:11)
[2019-04-23 23:33] LABS: Urine Appearance CLEAR; Urine Bilirubin NEGATIVE (NEG); Urine Blood NEGATIVE (NEG); Urine Color YELLOW; Urine Glucose 3+ (NEG); Urine Protein NEGATIVE (NEG); Urine pH 6.5 (5.0-7.0)
[2019-04-23 23:37] LABS: Urine Microscopic Reflex NO UMIC
[2019-04-23 23:53] LABS: Magnesium 2.3 mg/dL (1.8-2.4); Phosphorus 3.9 mg/dL (2.5-4.9)
[2019-04-24] MEDS: D5W 1,000 ML IV SCH ×4 (00:26→16:28)
[2019-04-24 05:13] LABS: Absolute Lymphocytes (CBC) 2.9 K/uL (0.7-4.9); Basophils % 1.1 % (0-1.3); Hematocrit 36.3 % (36.0-45.0); Lymphocytes % 25.7 % (15.3-44.8); MPV 9.5 fL (7.6-11.3); RBC Red Blood Cell Count 3.77 M/uL (3.86-4.86)
[2019-04-24 05:20] VITALS: BMI 30.9
[2019-04-24 05:50] LABS: Albumin 2.6 g/dL (3.4-5.0); Bilirubin Total 0.6 mg/dL (0.2-1.0); Magnesium 2.3 mg/dL (1.8-2.4); Protein, Total 6.3 g/dL (6.4-8.2)
[2019-04-24 06:08] LABS: Urine Appearance CLEAR; Urine Bilirubin NEGATIVE (NEG); Urine Blood NEGATIVE (NEG); Urine Color YELLOW; Urine Glucose NEGATIVE (NEG); Urine Protein NEGATIVE (NEG); Urine Specific Gravity <=1.005 (1.005-1.030); Urine pH 6.5 (5.0-7.0)
[2019-04-24 06:11] LABS: Urine Microscopic Reflex NO UMIC
[2019-04-24 06:16] LABS: Thyroid Stimulating Hormone 6.04 uIU/mL (0.360-3.740)
[2019-04-24] MEDS: CEFEPIME/SWI 1gm 10 ML IV SCH ×2 (09:37→21:25)
[2019-04-24] MEDS: Pantoprazole (granules) 40 MG/BLIST PACKET FT SCH ×2 (09:38→21:25)
[2019-04-24] MEDS: PHENYTOIN 125 MG/5 ML ORAL.SUSP PO SCH ×3 (09:38→21:26)
[2019-04-24] MEDS: VALPROIC ACID 250 MG/5 ML OSYR PO SCH (09:38)
[2019-04-24] MEDS: ENOXAPARIN 40 MG/0.4 ML SQ SCH (09:38)
[2019-04-24] MEDS: INSULIN -REGULAR HUMAN 100 UNIT in NA CHLORIDE 0.9% 100 ML IV SCH (09:39)
[2019-04-24] MEDS ORDERED: VITAL HP 1,000 ML BOT RTH SCH (11:00)
--- NOTE | 2019-04-24 14:03 | EEG ---
CHART: [id number] TEST ID#: [id number] DATE OF STUDY: 04/23/2019 THE EEG WAS RECORDED PORTABLE IN THE ICU ON A 17 CHANNEL MACHINE. ELECTRODES WERE APPLIED IN THE USUAL MANNER USING THE INTERNATIONAL 10-20 SYSTEM. THE WAKING BACKGROUND RHYTHM IN THIS RECORD CONSISTS OF POORLY DEVELOPED AND POORLY ORGANIZED WAVES OF 7 HZ., IN A WIDE DISTRIBUTION WHICH ATTENUATE POORLY WITH EYE OPENING. 1.5-3 HZ MIXED WITH 4-6 HZ ACTIVITY IS DIFFUSELY EXPRESSED IN ALL REGIONS. AMPLITUDES ARE DESPRESSED IN THE POSTERIOR REGIONS. THERE ARE NO FOCAL OR LATERALIZING FEATURES. NO EPILEPTIFORM ACTIVITY APPEARS. SLEEP OCCURRED NATURALLY. IN ADDITION TO NORMAL SLEEP PATTERNS ARE PRESENT. HYPERVENTILATION WAS NOT PERFORMED. PHOTIC STIMULATION PRODUCED NO DRIVING BILATERALLY. IMPRESSION: THIS IS A MODERATELY ABNORMAL AWAKE AND ASLEEP ROUTINE EEG DUE TO A MODERATELY SLOW BACKGROUND. THIS IS A NON-SPECIFIC FINDING INDICATING THE PRESENCE OF A MODERATE DIFFUSE DISTURBANCE IN CEREBRAL ACTIVITY.
--- NOTE | 2019-04-24 16:12 | PN ---
Date of Progress Note: 04/24/2019 Subjective: Patient seen and examined. Chart reviewed and case discussed with RN and Dr. Gonsalves. Patient much more awake and alert today, responding, following commands. Patient did drink some constanza er, ate some Jell-O yesterday. Family at the bedside, treatment plan explained and all questions ans wered. Medications: List reviewed. Physical Examination: Vital Signs: Temperature 98.5, heart rate 48, blood pressure 98/57, respirations 19, O2 99% on room air. General: Awake, alert, oriented to self and place, still somewhat confused, ill-appearing female. O bese, BMI of 31. CV: S1, S2. Sinus bradycardia. Peripheral pulses present. Respiratory: Moving air well bilaterally. No wheezing or stridor. Gastrointestinal: Abdomen is soft, nontender, nondistended. Positive bowel sounds. No guarding or rigidity. Extremities: No clubbing, cyanosis, or edema. Neurologic: Nonfocal. Moves all 4 extremities. Follows commands. Speech is somewhat altered. Laboratory Data: Sodium 157, potassium 4, chloride 125, CO2 of 27, BUN 14, creatinine 1.12, glucose 186. Serum osmolality 326. Uric acid is 4. Calcium 8.8, phosphorus 4, magnesium 2.3. TSH 6.04. W BC 11.4, H and H 11.9 and 36.3, platelets 147. EEG still pending. Assessment And Plan: A 58-year-old female with: 1.Acute metabolic encephalopathy, likely related to hypernatremia. MRI is negative. EEG pending. Appreciate Neurology input. 2.Sepsis, unclear source. IV antibiotics have been adjusted. White blood cell count still around 1 1. Cultures, no growth to date. We will discontinue vancomycin. 3.Severe hypernatremia. Sodium improving. Continue with D5W, avoid any other unnecessary sources o f sodium. Continue with free water flushes. Avoid quick correction which can lead to central pontin e myelinolysis. 4.History of seizure disorder. EEG completed. Neurology on-board. Patient placed on Dilantin and continue valproic acid. 5.Acute kidney injury. Creatinine back to baseline. Patient may have had possible diabetes insipid us due to lithium toxicity. 6.[place] toxicity, resolved. No indication for dialysis at this time per Nephrology. We will cont inue to monitor. 7.Major depressive disorder. 8.Schizophrenia. 9.Bipolar disorder. 10.Deep venous thrombosis prophylaxis with Lovenox. Plan: We will continue to monitor in ICU setting. KAPIL Voice ID: [id number] Report ID: [id number]
--- NOTE | 2019-04-24 17:03 | PN ---
Date of Progress Note: 04/24/2019 Subjective: Patient was admitted with acute kidney injury, lithium toxicity and altered mental status. Patient today is more awake, hypernatremia, started seeing improving yesterday. We started the patient on D5. Physical Examination: Vital Signs: When I saw the patient, blood pressure of 135/85, pulse of 52. The patient had urine output, average range around 150 per hour. Chest: Clear to auscultation. Heart: S1, S2. Regular. Abdomen: Soft, nontender. Extremity: No edema. Neuro: Alert, follows simple commands but cannot touch finger to nose even though the patient was drinking spontaneously. No tremor. Laboratory Data: H and H 11.9/36.3. Sodium 157, potassium 4, bicarb 27, BUN 14 , creatinine 1.1, GFR of 50. TSH 6.04. Urinalysis; specific gravity of 1.005, sodium 32, potassium 12. Current Medications: The patient on D5 of 100 per hour, cefepime vancomycin, Dilantin, valproic acid, Zofran and insulin drip. Assessment And Plan: 1. 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 I am going to continue D5, increase it to 150. Continue insulin drip and we will add low dose of hydrochlorothiazide and we will follow up the patient. Continue free water. We will encourage p.o. drinking also. We will follow up. 2. Acute kidney injury secondary to prerenal, recovered itself. 3. Altered mental status secondary to metabolic. We will follow up with Neurology, continue. Plan to correct her sodium. MAGALYS/BIENVENIDO Voice ID: [id number] Report ID: [id number] [facility]OSPITALSam[facility]
[2019-04-24] MEDS ORDERED: WATER IVPB SCH (21:00)
[2019-04-24] MEDS ORDERED: DEXTROSE 5% IVPB SCH (21:00)
[2019-04-24] MEDS ORDERED: VANCOMYCIN IVPB SCH (21:00)
[2019-04-24 23:16] LABS: Albumin 2.5 g/dL (3.4-5.0); Bilirubin Total 0.8 mg/dL (0.2-1.0); Potassium 3.6 mmol/L (3.5-5.1); Protein, Total 6.1 g/dL (6.4-8.2)
[2019-04-24 23:33] LABS: Urine Appearance CLEAR; Urine Bilirubin NEGATIVE (NEG); Urine Blood NEGATIVE (NEG); Urine Color YELLOW; Urine Glucose 3+ (NEG); Urine Microscopic Reflex NO UMIC; Urine Protein NEGATIVE (NEG); Urine Specific Gravity <=1.005 (1.005-1.030); Urine pH 6.5 (5.0-7.0)
[2019-04-25] MEDS: D5W 1,000 ML IV SCH ×2 (00:13→07:00)
[2019-04-25 05:48] LABS: Albumin 2.3 g/dL (3.4-5.0); Phosphorus 3.6 mg/dL (2.5-4.9); Potassium 3.7 mmol/L (3.5-5.1)
[2019-04-25 06:59] LABS: Absolute Lymphocytes (CBC) 2.6 K/uL (0.7-4.9); Hematocrit 34.1 % (36.0-45.0); Lymphocytes % 27.3 % (15.3-44.8); MPV 9.2 fL (7.6-11.3); RBC Red Blood Cell Count 3.56 M/uL (3.86-4.86)
[2019-04-25] MEDS ORDERED: WATER IVPB SCH (09:00)
[2019-04-25] MEDS ORDERED: VANCOMYCIN IVPB SCH (09:00)
[2019-04-25] MEDS ORDERED: DEXTROSE 5% IVPB SCH (09:00)
[2019-04-25] MEDS: hydroCHLOROthiazide 12.5 MG CAP PO SCH (09:55)
[2019-04-25] MEDS: PHENYTOIN 125 MG/5 ML ORAL.SUSP PO SCH ×3 (09:55→21:33)
[2019-04-25] MEDS: Pantoprazole (granules) 40 MG/BLIST PACKET FT SCH ×2 (09:55→21:34)
[2019-04-25] MEDS: VALPROIC ACID 250 MG/5 ML OSYR PO SCH (09:56)
[2019-04-25] MEDS: CEFEPIME/SWI 1gm 10 ML IV SCH ×2 (09:57→21:33)
[2019-04-25] MEDS: ENOXAPARIN 40 MG/0.4 ML SQ SCH (09:57)
[2019-04-25 12:18] LABS: Urine Appearance CLEAR; Urine Bilirubin NEGATIVE (NEG); Urine Blood NEGATIVE (NEG); Urine Color YELLOW; Urine Glucose 3+ (NEG); Urine Protein NEGATIVE (NEG); Urine pH 6.5 (5.0-7.0)
[2019-04-25 12:23] LABS: Urine Microscopic Reflex ORDER UMIC
[2019-04-25 12:40] LABS: Urine Bacteria <20 /HPF (<20); Urine RBC <5 /HPF (NONE SEEN)
[2019-04-25 12:41] LABS: Urine Culture Reflex Order REFLEXED; Urine Yeast PRESENT (NONE SEEN)
[2019-04-25 13:33] LABS: Potassium 3.9 mmol/L (3.5-5.1)
[2019-04-25] MEDS: INSULIN -REGULAR HUMAN 50 UNIT/0.5 ML ML SQ SCH ×2 (16:28→21:35)
[2019-04-25] MEDS: INSULIN GLARGINE 100 UNITS/ML SQ SCH (21:34)
[2019-04-26 06:55] LABS: Absolute Lymphocytes (CBC) 2.6 K/uL (0.7-4.9); Basophils % 0.9 % (0-1.3); Lymphocytes % 26.1 % (15.3-44.8); MPV 9.8 fL (7.6-11.3); RBC Red Blood Cell Count 3.72 M/uL (3.86-4.86)
[2019-04-26 07:13] LABS: Albumin 2.7 g/dL (3.4-5.0); Magnesium 2.1 mg/dL (1.8-2.4); Phosphorus 2.3 mg/dL (2.5-4.9); Potassium 3.6 mmol/L (3.5-5.1)
[2019-04-26] MEDS: INSULIN -REGULAR HUMAN 50 UNIT/0.5 ML ML SQ SCH ×4 (07:30→21:49)
[2019-04-26] MEDS: ENOXAPARIN 40 MG/0.4 ML SQ SCH (08:36)
[2019-04-26] MEDS: VALPROIC ACID 250 MG/5 ML OSYR PO SCH (08:37)
[2019-04-26] MEDS: PHENYTOIN 125 MG/5 ML ORAL.SUSP PO SCH ×3 (08:37→21:44)
[2019-04-26] MEDS: hydroCHLOROthiazide 12.5 MG CAP PO SCH (08:38)
[2019-04-26] MEDS: Pantoprazole (granules) 40 MG/BLIST PACKET FT SCH ×2 (08:38→21:44)
[2019-04-26] MEDS: POTASS/SODIUM PHOSPHATE 1 PKT POWD.PACK PO SCH ×3 (10:18→12:08)
[2019-04-26] MEDS: CEFEPIME/SWI 1gm 10 ML IV SCH ×2 (10:18→23:25)
[2019-04-26] MEDS: D5W 1,000 ML IV SCH ×2 (12:08→23:25)
--- NOTE | 2019-04-26 13:08 | P.PN ---
Subjective Date of Service: 04/26/19 Chief Complaint: AMS Subjective: No new changes pt admitted with AMS , on lithium , fopund to have MICHAELA and hypernatremia today cont to be polyuric will restart D5W encourage to increase fluid intake will increase HCTZ if no improvement in serum sodium , will consider desmporessin , even though she is likly to have nephrogenic DI Physical Examination - Vital Signs Temperature: 98.7 F Blood Pressure: 123/58 Pulse: 56 Respirations: 16 Pulse Ox (%): 97 - Physical Exam General: Alert, In no apparent distress, Obese HEENT: Atraumatic Neck: Supple, Without JVD or thyroid abnormality Respiratory: Clear to auscultation bilaterally, Normal air movement Cardiovascular: No edema, Regular rate/rhythm, Normal S1 S2, No rubs Gastrointestinal: Soft and benign - Studies Microbiology Data (last 24 hrs): 04/20/19 12:30 Blood - Blood Aerobic Blood Culture - Final No growth in 5 days. 04/20/19 12:30 Blood - Blood Anaerobic Blood Culture - Final No growth in 5 days. 04/20/19 12:00 Blood - Blood Aerobic Blood Culture - Final No growth in 5 days. 04/20/19 12:00 Blood - Blood Anaerobic Blood Culture - Final No growth in 5 days. Medications List Reviewed: Yes Assessment And Plan - Plan Hypernatremia with polyuria likely due to lithium induced DI encourage po intake cont HCTZ will consider desmopressin MICHAELA resolved due to prerenal azotemia Hx of bipolar disorder pt is stable
--- NOTE | 2019-04-26 16:22 | P.PN ---
Subjective Date of Service: 04/26/19 Chief Complaint: AMS Subjective: Improving Patient seen and examined case discussed with RN and Dr. Larsen. No acute events overnight. Doing well. Encouraged to continue drinking water Review of Systems 10-point ROS is otherwise unremarkable Physical Examination - Vital Signs Temperature: 98.7 F Blood Pressure: 123/58 Pulse: 56 Respirations: 16 Pulse Ox (%): 97 - Physical Exam General: Alert, In no apparent distress, Oriented x3, Obese HEENT: Atraumatic, PERRLA, EOMI Neck: Supple, JVD not distended Respiratory: Clear to auscultation bilaterally, Normal air movement Cardiovascular: No edema, Normal pulses, Regular rate/rhythm, Normal S1 S2 Gastrointestinal: Normal bowel sounds, Soft and benign, Non-distended, No tenderness Musculoskeletal: No tenderness Integumentary: No rashes, No erythema Neurological: Normal speech, Normal strength at 5/5 x4 extr, Normal tone, Normal affect - Studies Laboratory Tests 04/20/19 04/20/19 04/20/19 11:53 11:53 11:53 WBC RBC Hgb Hct MCV MCH MCHC RDW Plt Count MPV Neutrophils % Lymphocytes % Monocytes % Eosinophils % Basophils % Absolute Neutrophils Absolute Lymphocytes Absolute Monocytes Absolute Eosinophils Absolute Basophils Morphology Comment PT 13.8 H INR 1.18 APTT 33.7 pH pCO2 pO2 HCO3 Base Excess Oxyhemoglobin ABG O2 Sat (Measured) ABG Carboxyhemoglobin ABG Methemoglobin Other Total Hgb Inspired O2 Sodium Potassium Chloride Carbon Dioxide BUN Creatinine Estimated GFR Glucose POC Glucose Serum Osmolality Lactic Acid Calcium Total Bilirubin Direct Bilirubin AST ALT Alkaline Phosphatase Creatine Kinase Rapid Troponin I Serum Total Protein Albumin Globulin Albumin/Globulin Ratio Procalcitonin Urine RBC Urine WBC Ur Squamous Epith Cells Urine Bacteria Urine Culture Reflexed Salicylates 8.7 Opiates Screen Methadone Screen Acetaminophen Ur Barbiturates Screen Valproic Acid Ur Phencyclidine Scrn Amphetamines Screen Benzodiazepines Screen [place] 2.0 H Cocaine Screen Ur THC Screen Plasma/Serum Alcohol < 3 Acetone Level 04/20/19 04/20/19 04/20/19 11:53 11:53 11:53 WBC RBC Hgb Hct MCV MCH MCHC RDW Plt Count MPV Neutrophils % Lymphocytes % Monocytes % Eosinophils % Basophils % Absolute Neutrophils Absolute Lymphocytes Absolute Monocytes Absolute Eosinophils Absolute Basophils Morphology Comment PT INR APTT pH pCO2 pO2 HCO3 Base Excess Oxyhemoglobin ABG O2 Sat (Measured) ABG Carboxyhemoglobin ABG Methemoglobin Other Total Hgb Inspired O2 Sodium Potassium Chloride Carbon Dioxide BUN Creatinine Estimated GFR Glucose POC Glucose Serum Osmolality 335 H Lactic Acid 2.6 H Calcium Total Bilirubin Direct Bilirubin AST ALT Alkaline Phosphatase Creatine Kinase Rapid Troponin I Serum Total Protein Albumin Globulin Albumin/Globulin Ratio Procalcitonin 1.01 H Urine RBC Urine WBC Ur Squamous Epith Cells Urine Bacteria Urine Culture Reflexed Salicylates Opiates Screen Methadone Screen Acetaminophen Ur Barbiturates Screen Valproic Acid Ur Phencyclidine Scrn Amphetamines Screen Benzodiazepines Screen [place] Cocaine Screen Ur THC Screen Plasma/Serum Alcohol Acetone Level 04/20/19 04/20/19 04/20/19 11:54 12:28 12:30 WBC RBC Hgb Hct MCV MCH MCHC RDW Plt Count MPV Neutrophils % Lymphocytes % Monocytes % Eosinophils % Basophils % Absolute Neutrophils Absolute Lymphocytes Absolute Monocytes Absolute Eosinophils Absolute Basophils Morphology Comment PT INR APTT pH 7.43 pCO2 39.9 pO2 76.4 HCO3 26.3 Base Excess 2.4 Oxyhemoglobin 93.8 L ABG O2 Sat (Measured) 95.9 ABG Carboxyhemoglobin 1.4 ABG Methemoglobin 0.8 Other Total Hgb 14.2 Inspired O2 21.0 Sodium Potassium Chloride Carbon Dioxide BUN Creatinine Estimated GFR Glucose POC Glucose 427 H* Serum Osmolality Lactic Acid Calcium Total Bilirubin Direct Bilirubin AST ALT Alkaline Phosphatase Creatine Kinase Rapid Troponin I Serum Total Protein Albumin Globulin Albumin/Globulin Ratio Procalcitonin Urine RBC Urine WBC Ur Squamous Epith Cells Urine Bacteria Urine Culture Reflexed Salicylates Opiates Screen Negative Methadone Screen Negative Acetaminophen Ur Barbiturates Screen Negative Valproic Acid Ur Phencyclidine Scrn Negative Amphetamines Screen Negative Benzodiazepines Screen Negative [place] Cocaine Screen Negative Ur THC Screen Negative Plasma/Serum Alcohol Acetone Level 04/20/19 04/20/19 04/20/19 12:48 12:48 13:30 WBC 19.0 H RBC 4.49 Hgb 14.1 Hct 42.7 MCV 95.2 D MCH 31.4 MCHC 32.9 RDW 14.8 Plt Count 322 MPV 9.3 Neutrophils % 82.2 H Lymphocytes % 8.9 L Monocytes % 7.8 Eosinophils % 0.6 Basophils % 0.5 Absolute Neutrophils 15.6 H Absolute Lymphocytes 1.7 Absolute Monocytes 1.5 H Absolute Eosinophils 0.1 Absolute Basophils 0.1 Morphology Comment Not seen PT INR APTT pH pCO2 pO2 HCO3 Base Excess Oxyhemoglobin ABG O2 Sat (Measured) ABG Carboxyhemoglobin ABG Methemoglobin Other Total Hgb Inspired O2 Sodium 143 Potassium 3.3 L Chloride 110 H Carbon Dioxide 27 BUN 23 H Creatinine 1.73 H Estimated GFR 30 L Glucose 452 H* POC Glucose Serum Osmolality Lactic Acid Calcium 9.6 Total Bilirubin 1.0 Direct Bilirubin 0.5 H AST 37 ALT 32 Alkaline Phosphatase 457 H Creatine Kinase 596 H Rapid Troponin I < 0.02 Serum Total Protein 8.6 H Albumin 3.3 L Globulin 5.3 H Albumin/Globulin Ratio 0.6 L Procalcitonin Urine RBC <5 Urine WBC <5 Ur Squamous Epith Cells <5 Urine Bacteria <20 Urine Culture Reflexed Not needed Salicylates Opiates Screen Methadone Screen Acetaminophen < 2.0 L Ur Barbiturates Screen Valproic Acid 61.0 Ur Phencyclidine Scrn Amphetamines Screen Benzodiazepines Screen [place] Cocaine Screen Ur THC Screen Plasma/Serum Alcohol Acetone Level Neg Microbiology Data (last 24 hrs): 04/20/19 12:30 Blood - Blood Aerobic Blood Culture - Final No growth in 5 days. 04/20/19 12:30 Blood - Blood Anaerobic Blood Culture - Final No growth in 5 days. 04/20/19 12:00 Blood - Blood Aerobic Blood Culture - Final No growth in 5 days. 04/20/19 12:00 Blood - Blood Anaerobic Blood Culture - Final No growth in 5 days. Medications List Reviewed: Yes Assessment And Plan - Plan Assessment And Plan: A 58-year-old female with: 1. Acute metabolic encephalopathy, likely related to hypernatremia. Significantly improved. MRI is negative. EEG no seizure activity. Appreciate Neurology input. 2. Sepsis, unclear source. IV antibiotics have been adjusted. White blood cell count now normalized Cultures, no growth to date. We will discontinue antibiotics. Completed 6 days. 3. Severe hypernatremia. Sodium climbing again to 150. Will restart D5W, avoid any other unnecessary sources of sodium. Encourage oral hydration 4. [place] toxicity, resolved. No indication for dialysis at this time per Nephrology. We will continue to monitor. 5. Acute kidney injury. Creatinine back to baseline. Patient may have had possible diabetes insipidus due to lithium toxicity. Will continue to monitor creatinine level and avoid NSAIDs. 6. Bipolar disorder. 7. Major depressive disorder. 8. Schizophrenia. 9. Deep venous thrombosis prophylaxis with Lovenox. Continue physical therapy. Discharge planning and once sodium is improving and patient can keep it normalized with oral hydration will discharge home Discharge Plan: Home Plan to discharge in: 24 Hours - Code Status/Comfort Care Code Status Assessed: Yes
--- NOTE | 2019-04-26 19:00 | PN ---
Date of Progress Note: 04/25/2019 Subjective: Patient seen and examined. Chart reviewed and case discussed with RN. Patient much mor e awake and alert today, doing well, conversing, following commands. Medications: Medication list reviewed. Physical Examination: Vital Signs: Temperature 98, heart rate 44, blood pressure 95/46, respirations 17, O2 100% on room a ir. General: Awake, alert, oriented x3, not in any acute distress. Obese female, BMI 32. CV: S1 and S2. Sinus bradycardia. Peripheral pulses present. Respiratory: Moving air well bilaterally. No wheezing or stridor. Gastrointestinal: Abdomen is soft, nontender, nondistended. Positive bowel sounds. Extremities: No clubbing, cyanosis, or edema. Neurologic: Cranial nerves 2 through 12 intact grossly. No focal neurological deficits. Speech is normal. Laboratory Data: Sodium 146, potassium 3.7, chloride 113, CO2 of 26, BUN 12, creatinine 0.96, glucos e 281, calcium 7.9, phosphorus 3.6, magnesium 2. WBC 9.7, H and H 11.5 and 34.1, platelets 184, neut rophils 60%. Blood cultures, no growth to date. Urine cultures, negative, final. Assessment And Plan: A 58-year-old female with: 1.Acute metabolic encephalopathy related to hypernatremia, resolving. Cerebrovascular accident rule d out. EEG showed findings consistent with altered mental status. No epileptiform activity seen. A ppreciate Neurology input. 2.Sepsis, unclear source. Discontinue IV vancomycin. Patient's white blood cell count is normalize d. Cultures are negative. 3.Severe hypernatremia, improving. We will discontinue D5W. 4.History of seizure disorder. Apparently, per family, there is no history of seizures. Patient ta kes valproic acid for mood stabilizing. EEG was negative. We will continue Dilantin to aid in her s ymptoms. 5.Acute kidney injury. Creatinine now back to normal. Likely, patient did have renal injury from d iabetes insipidus related to lithium toxicity. 6.[place] toxicity, resolved, did not require dialysis. 7.Major depressive disorder, stable. 8.Schizophrenia, stable. 9.Bipolar disorder, stable. 10.Deep venous thrombosis prophylaxis with Lovenox. Plan: Step down from ICU. PT evaluation. Discharge planning. Likely discharge in the next 24 hour s depending on clinical response. Procalcitonin is 0.33, indicating possible localized infection, bu t no sepsis. SA/MODL Voice ID: [id number] Report ID: [id number]
--- NOTE | 2019-04-26 19:02 | PN ---
Date of Progress Note: 04/25/2019 Subjective: Patient was admitted with altered mental status, lithium toxicity, acute kidney injury, developed hypernatremia. Physical Examination: Vital Signs: Blood pressure 112/65, pulse of 55. The patient did have good urine output. Patient m lia [id number]. The patient was positive of 2 L. Chest: Clear to auscultation. Heart: S1, S2. Regular. Abdomen: Soft, nontender. Extremities: No edema. Neurologic: Alert. Follow commands. No tremor. Laboratory Data: WBC 9.7, H and H 11.5/31.1, platelets 184. Sodium 146, potassium 3.9, bicarb 25, B UN 11, creatinine of 1, GFR of 52, blood sugar slightly on the upper side on the 280. Calcium 7.9, p hosphorus 3.6, magnesium of 2. Albumin 2.3. Current Medications: The patient on cefepime, Lovenox, Dilantin, valproic acid, hydrochlorothiazide 12.5, Zofran, pantoprazole. Assessment And Plan: 1.Acute kidney injury secondary to prerenal, recovered, resolved. 2.Hypernatremia secondary to diabetes insipidus, secondary to lithium. We just discontinue IV fluid for the last 6 hours and her sodium still maintained okay. We are going to keep holding IV fluid. Continue to monitor the patient. I will follow up urine electrolyte for tomorrow. We will monitor t he patient closely. We will consider better blood sugar control to avoid glucose diuresis. 3.Continue hydrochlorothiazide for the time being. 4.Hypertension, controlled optimal. 5.Hypokalemia, status post supplement, resolved. 6.Altered mental status secondary to hypernatremia, lithium toxicity, recovered, resolved. MAGALYS/KELLYL Voice ID: [id number] Report ID: [id number]
[2019-04-26] MEDS: INSULIN GLARGINE 100 UNITS/ML SQ SCH (21:49)
[2019-04-27 04:35] LABS: Absolute Lymphocytes (CBC) 3.3 K/uL (0.7-4.9); Basophils % 0.4 % (0-1.3); Hematocrit 32.1 % (36.0-45.0); Lymphocytes % 30.3 % (15.3-44.8); MPV 9.8 fL (7.6-11.3); RBC Red Blood Cell Count 3.35 M/uL (3.86-4.86)
[2019-04-27 04:50] LABS: Albumin 2.4 g/dL (3.4-5.0); Phosphorus 2.9 mg/dL (2.5-4.9); Potassium 3.3 mmol/L (3.5-5.1)
[2019-04-27] MEDS ORDERED: POTASSIUM CL SA 10 MEQ TAB PO ONE (05:30)
[2019-04-27] MEDS: PHENYTOIN 125 MG/5 ML ORAL.SUSP PO SCH ×2 (08:08→12:59)
[2019-04-27] MEDS: CEFEPIME/SWI 1gm 10 ML IV SCH (08:08)
[2019-04-27] MEDS: VALPROIC ACID 250 MG/5 ML OSYR PO SCH (08:08)
[2019-04-27] MEDS: INSULIN -REGULAR HUMAN 50 UNIT/0.5 ML ML SQ SCH ×2 (08:09→11:50)
[2019-04-27] MEDS: Pantoprazole (granules) 40 MG/BLIST PACKET FT SCH (08:09)
[2019-04-27] MEDS: ENOXAPARIN 40 MG/0.4 ML SQ SCH (08:09)
[2019-04-27] MEDS: D5W 1,000 ML IV SCH (08:12)
[2019-04-27] MEDS ORDERED: hydroCHLOROthiazide 12.5 MG CAP PO SCH (09:00)
[2019-04-27] MEDS ORDERED: hydroCHLOROthiazide 25 MG TAB PO SCH (09:00)
[2019-04-27 09:13] VITALS: O2SAT 96
--- NOTE | 2019-04-27 13:15 | P.PN ---
Subjective Date of Service: 04/27/19 Chief Complaint: AMS Subjective: New changes pt admitted with AMS , on lithium , found to have MICHAELA and hypernatremia today Sodium normalized pt can be discharged from nephrology point of view Physical Examination - Vital Signs Temperature: 99.1 F Blood Pressure: 111/59 Pulse: 55 Respirations: 20 Pulse Ox (%): 95 - Physical Exam General: Alert, In no apparent distress, Obese HEENT: Atraumatic Neck: Supple, Without JVD or thyroid abnormality Respiratory: Clear to auscultation bilaterally, Normal air movement Cardiovascular: No edema, Regular rate/rhythm, No gallops, No rubs, No murmurs Gastrointestinal: Soft and benign - Studies Medications List Reviewed: Yes Assessment And Plan - Plan Hypernatremia with polyuria likely due to lithium induced DI encourage po intake cont HCTZ MICHAELA resolved due to prerenal azotemia Hx of bipolar disorder pt is stable DM as per primary
--- NOTE | 2019-04-28 04:40 | DS ---
Date of Discharge: 04/27/2019 Consultants: 1. Dr. Gonsalves with Nephrology. 2. Dr. Larsen with Nephrology. 3. Dr. Layne as well with Nephrology. 4. Dr. Montero with Neurology. Admitting Diagnoses: 1. Leukocytosis. 2. Acute kidney injury. 3. Intractable nausea, vomiting. 4. Acute psychosis with altered mental status. 5. Hyperglycemia. 6. Seizures. 7. Schizophrenia. 8. Bipolar disorder. Discharge Diagnoses: 1. Acute metabolic encephalopathy secondary to hypernatremia, resolved. 2. Sepsis, unclear source. Treatment with IV antibiotics completed. Cultures negative. 3. Severe hypernatremia, sodium improved, back to baseline. 4. [place] toxicity, resolved. 5. Nephrogenic diabetes insipidus. 6. Acute kidney injury. 7. Bipolar disorder. 8. Major depressive disorder. 9. Schizophrenia. 10. Diabetes mellitus type 2 with hyperglycemia, uncontrolled. Hemoglobin A1c 12%. 11. Obesity, body mass index of 31. Hospital Course: Patient is a 58-year-old female admitted to the hospital for altered mental status. Patient had history of multiple psychiatric illnesses. Patient had been having nausea and vomiting. Workup revealed leukocytosis. Patient was started on broad-spectrum IV antibiotics. She had a white count of 19,000 with left shift. Cultures were obtained. Blood cultures were negative. Urine cultures were also negative. Patient's white blood cell count improved. IV antibiotics were then completed for a 7-day course. Patient was altered and this was thought to be due to her hypernatremia. Patient's sodium had jumped up to in the 160s. This was likely due to nephrogenic diabetes insipidus from lithium toxicity. Patient's lithium level was elevated at 2, improved with IV fluids and her valproic acid level initially was 61, within range, which was restarted. However, the patient continued to have significant altered mental status. Therefore, EEG was obtained, showed some findings consistent with metabolic encephalopathy. Neurology was consulted. Head CT scan was negative. MRI of the brain was also negative for acute stroke. Patient did have electrolyte abnormalities, which were corrected. Her procalcitonin initially was positive, then trended down. Her lactate was also initially elevated and improved with IV fluids. Patient did have improvement in her sodium level, which had to be corrected slowly to avoid complications in the brain. Nephrology was consulted. Patient did not require IV desmopressin. She was placed on hydrochlorothiazide. Antibiotics were adjusted to avoid any further sodium increase. Patient slowly began to have improvement in her mental status as her sodium improved. She denies any deficits. There were no stroke-like symptoms. Patient will need access to free water at all times. She has multiple psychiatric illnesses. Family was counseled to have free water available for patient. She should correct her sodium naturally due to the drive for thirst; however, will need access to free water in front of her. Patient did well overall. She was able to work well with PT. She was then cleared for discharge from cosmetic sales consultant's standpoint. Her medications were adjusted. She will need to discontinue lithium altogether. She was started on Dilantin while in the hospital and her Depakote dose was decreased. She was also placed on long-acting insulin for her uncontrolled diabetes. Followup: Patient to follow up with primary care physician in 2 to 3 days. Follow up with reeling machine operator, Dr. Gonsalves, in 2 weeks. Follow up with psychiatrist in 1 week. Return to ER for worsening condition. Diet: Diabetic. Activity: As tolerated. Physical Examination: General: Awake, alert, oriented x3. No acute distress, obese female. CV: S1, S2. Respiratory: Moving air well bilaterally. Abdomen: Soft, nontender, nondistended. Positive bowel sounds. Extremities: No clubbing, cyanosis, or edema. Neurologic: Nonfocal. total time spent dc 34 mins SA/MODL Voice ID: [id number] Report ID: [id number] ANN MARIE
[2019-05-04 04:44] VITALS: BP 130/50; TEMP 98.4
== END 2019-04-27 15:06 | disposition home or self-care (01) | DRG 871 ==
LOC: ER 11:38 → SUATTDRO 11:38 → ERHOLD 15:31 → 3RD-ICU 19:23 → 4TH 04-25 14:05
PROVIDERS: ADMIT Family Medicine; ATTEND Family Medicine
DX: A41.9 Sepsis, unspecified organism (principal); G93.41 Metabolic encephalopathy; N17.0 Acute kidney failure with tubular necrosis; E87.0 Hyperosmolality and hypernatremia; E87.6 Hypokalemia; F20.9 Schizophrenia, unspecified; E11.65 Type 2 diabetes mellitus with hyperglycemia; F31.9 Bipolar disorder, unspecified; E11.21 Type 2 diabetes mellitus with diabetic nephropathy; T43.595A Adverse effect of other antipsychotics and neuroleptics, initial encounter; R35.8 Other polyuria; E87.8 Other disorders of electrolyte and fluid balance, not elsewhere classified; G40.909 Epilepsy, unspecified, not intractable, without status epilepticus; E66.9 Obesity, unspecified; Z68.31 Body mass index [BMI] 31.0-31.9, adult
CPT/HCPCS: 36415; 51702; 70450; 70553; 71045; 74018; 74176; 80048; 80053; 80069; 80076; 80164; 80178; 80202; 80307; 80320; 80329; 81003; 81015; 82010; 82140; 82533; 82550; 82570; 82805; 82962; 83036; 83605; 83735; 83930; 83935; 84100; 84132; 84145; 84156; 84300; 84439; 84443; 84484; 84550; 85025; 85610; 85730; 87040; 87086; 87088; 90471; 93005; 94760; 95819; 96361; 96365; 96366; 96367; 96375; 97112; 97116; 97161; 97530; 99285; A9577; J0692; J1650; J1815; J2543; J3370; J7030; J7060; Q2035

== ENCOUNTER 2019-11-09 23:53 | Emergency (ER) | payer SELFPAY ==
--- OUTSIDE RECORDS SUMMARY | 2019-11-09 23:55 | XMS REPORT ---
:1960 Author Organization [facility] t Address [address] [place] [address] Care Team Providers Name Role Phone Unavailable Unavailable Unavailable Problems This patient has no known problems. Allergies, Adverse Reactions, Alerts This patient has no known allergies or adverse reactions. Medications This patient has no known medications. Results Test Description Test Time Test Comments Text Results Atomic Results Result Comments SCR MAMM BILATERAL NU 2018-10-16 15:01:56 - SCR MARGO M BILATERAL NU CAD CAD DIGITAL DIGITALBILATERAL DIGITAL SCR EENING MAMMOGRAM 3D/2D WITH CAD: 10/12/2018CLINICAL: Asymptoma tic. Digital breast tomosynthesis was performed in addition to rou poli CC and MLO views. Current mammographic images were becca luated by either a [employer] M-Vu or a [employer] ImageChecker CAD ([employer] aided detection system). Comparison is made to exam d ated 07/22/2016 mammogram - [facility]. The tis osl of both breasts is heterogeneou sly dense. This may lower the sensitivity of mammography. There are benign vascular calcific ations in both breasts. No suspici ous mass, architectural distorti on, malignant type calcification , or lymph node abnormality detec richard. Breast architecture is stabl e compared to prior exams.IMPR ESSION: BENIGNThere is no mammograph ic evidence of malignancy. Resu me annual screening mammography in one year. Scott Lozano M.D. et/penrad:10/16/2018 15:01:56 Clothes Designer: Rhianna Roberson MM, [facility] [place] [facility] Mammographyletter sent: HORTENCIAA DS 1-2 Normal Mammogram BI-RADS: 2 Benign
--- NOTE | 2019-11-10 00:41 | ER ---
Nurse's Notes [facility] Name: Ebony Smith Age: 58 yrs Sex: Female : 1960 Arrival Date: 11/09/2019 Time: 23:54 Bed 28 Private MD: Diagnosis: Urinary tract infection, site not specified Presentation: 11/09 00:11 Chief complaint: Patient states: PT STATES SHE CANT SLEEP AND SHE GETS WAVES OF HEAT ls4 THAT GOES AWAY. PT STATES THE PILLS THAT SHE TAKES TO MAKE HER SLEEP DONT WORK ANYMORE. PT ALSO STATES THAT SHE HAS NOT HAD A BOWEL MOVEMENT IN A FEW DAYS. Coronavirus screen: Proceed with normal triage. Patient denies a cough. Patient denies shortness of breath or difficulty breathing. Patient denies measured and/or subjective temperature greater than 100.4F prior to today's visit. Patient denies travel on a cruise ship or to a country the [facility] currently lists as an affected area. Patient denies contact with known and/or suspected case of COVID-19. Ebola Screen: No symptoms or risks identified at this time. Initial Sepsis Screen: Does the patient meet any 2 criteria? No. Patient's initial sepsis screen is negative. Does the patient have a suspected source of infection? No. Patient's initial sepsis screen is negative. Risk Assessment: Do you want to hurt yourself or someone else? Patient reports no desire to harm self or others. Onset of symptoms is unknown. 00:11 Method Of Arrival: Ambulatory ls4 00:11 Acuity: SOILA 4 ls4 Triage Assessment: 00:20 General: Appears in no apparent distress. comfortable, Behavior is calm, cooperative. ls4 Pain: Denies pain. EENT: No deficits noted. No signs and/or symptoms were reported regarding the EENT system. Neuro: No deficits noted. Cardiovascular: Capillary refill < 3 seconds Patient's skin is warm and dry. Respiratory: No deficits noted. Airway is patent Breath sounds are clear bilaterally. GI: No signs and/or symptoms were reported involving the gastrointestinal system. Bowel sounds present X 4 quads. Abd is soft and non tender X 4 quads. : No deficits noted. No signs and/or symptoms were reported regarding the genitourinary system. Derm: No deficits noted. No signs and/or symptoms reported regarding the dermatologic system. Historical: - Allergies: 00:16 No Known Allergies; ls4 - Home Meds: 00:16 divalproex 500 mg Oral Tb24 2 tabs at bedtime [Active]; lithium carbonate 450 mg Oral ls4 TbER [Active]; quetiapine 400 mg Oral tab [Active]; - PMHx: 00:16 Bipolar disorder; Schizophrenia; Seizures; ls4 - Immunization history:: Adult Immunizations up to date. - Social history:: Smoking status: Patient denies any tobacco usage or history of. Screenin:24 Abuse screen: Denies threats or abuse. Denies injuries from another. Nutritional ls4 screening: No deficits noted. Tuberculosis screening: No symptoms or risk factors identified. Fall Risk None identified. Assessment: 00:51 Reassessment: Patient appears in no apparent distress at this time. Patient and/or ls4 family updated on plan of care and expected duration. Pain level reassessed. Patient is alert, oriented x 3, equal unlabored respirations, skin warm/dry/pink. Patient states symptoms have improved. Vital Signs: 00:11 BP 124 / 76; Pulse 65; Resp 14; Pulse Ox 99% on R/A; Pain 0/10; ls4 ED Course: 18 23:54 Patient arrived in ED. ds1 11/09 00:00 Jamie Bajwa PA is PHCP. [facility] 00:00 Mikael Sarah MD is Attending Physician. [facility] 00:03 Judie Bass, MARTINE is Primary Nurse. ls4 00:13 Triage completed. ls4 00:24 Patient has correct armband on for positive identification. Bed in low position. Call ls4 light in reach. Side rails up X 1. Pulse ox on. NIBP on. Warm blanket given. Pillow given. Verbal reassurance given. 00:24 No provider procedures requiring assistance completed. Patient did not have IV access ls4 during this emergency room visit. 00:40 Mikael Sarah MD is Referral Physician. tw4 Administered Medications: No medications were administered Outcome: 00:40 Discharge ordered by . tw4 00:52 Discharged to home ambulatory. ls4 00:52 Condition: good 00:52 Discharge instructions given to patient, family, Instructed on discharge instructions, follow up and referral plans. medication usage, Demonstrated understanding of instructions, follow-up care, medications, Prescriptions given X 1. 00:53 Patient left the ED. ls4 Signatures: Jamie Bajwa PA PA jmm Sanford, Demi ds1 Mikael Sarah MD MD tw4 Judie Bass RN RN ls4
--- NOTE | 2019-11-10 00:41 | EDPHYS ---
Physician Documentation [facility] Name: Ebony Smith Age: 58 yrs Sex: Female : 1960 Arrival Date: 11/09/2019 Time: 23:54 Bed 28 Private MD: ED Physician Mikael Sarah HPI: 11/09 05:49 This 58 yrs old Female presents to ER via Ambulatory with complaints of Fever, tw4 Abdominal Pain. 05:49 The patient reports fever, not measured (subjective). Onset: The symptoms/episode tw4 began/occurred today. Modifying factors: there are no obvious modifying factors. Associated signs and symptoms: Pertinent positives: None. Pertinent negatives: None. Severity of symptoms: At their worst the symptoms were moderate in the emergency department the symptoms are unchanged. The patient has not experienced similar symptoms in the past. Historical: - Allergies: 00:16 No Known Allergies; ls4 - Home Meds: 00:16 divalproex 500 mg Oral Tb24 2 tabs at bedtime [Active]; lithium carbonate 450 mg Oral ls4 TbER [Active]; quetiapine 400 mg Oral tab [Active]; - PMHx: 00:16 Bipolar disorder; Schizophrenia; Seizures; ls4 - Immunization history:: Adult Immunizations up to date. - Social history:: Smoking status: Patient denies any tobacco usage or history of. ROS: 05:49 Eyes: Negative for injury, pain, redness, and discharge, Neck: Negative for injury, tw4 pain, and swelling, Cardiovascular: Negative for chest pain, palpitations, and edema, Respiratory: Negative for shortness of breath, cough, wheezing, and pleuritic chest pain, Abdomen/GI: Negative for abdominal pain, nausea, vomiting, diarrhea, and constipation, Back: Negative for injury and pain, MS/Extremity: Negative for injury and deformity, Skin: Negative for injury, rash, and discoloration, Neuro: Negative for headache, weakness, numbness, tingling, and seizure. 05:49 Constitutional: Positive for fever, Negative for body aches, chills, fatigue, poor PO intake, weight loss. Exam: 05:49 Constitutional: This is a well developed, well nourished patient who is awake, alert, tw4 and in no acute distress. Head/Face: Normocephalic, atraumatic. Chest/axilla: Normal chest wall appearance and motion. Nontender with no deformity. No lesions are appreciated. Cardiovascular: Regular rate and rhythm with a normal S1 and S2. No gallops, murmurs, or rubs. Normal PMI, no JVD. No pulse deficits. Respiratory: Lungs have equal breath sounds bilaterally, clear to auscultation and percussion. No rales, rhonchi or wheezes noted. No increased work of breathing, no retractions or nasal flaring. Abdomen/GI: Soft, non-tender, with normal bowel sounds. No distension or tympany. No guarding or rebound. No evidence of tenderness throughout. Back: No spinal tenderness. No costovertebral tenderness. Full range of motion. MS/ Extremity: Pulses equal, no cyanosis. Neurovascular intact. Full, normal range of motion. Neuro: Awake and alert, GCS 15, oriented to person, place, time, and situation. Cranial nerves II-XII grossly intact. Motor strength 5/5 in all extremities. Sensory grossly intact. Cerebellar exam normal. Normal gait. Vital Signs: 00:11 BP 124 / 76; Pulse 65; Resp 14; Pulse Ox 99% on R/A; Pain 0/10; ls4 MDM: 00:12 Patient medically screened. tw4 05:49 Differential diagnosis: viral Infection, bacterial infection, URI, pneumonia UTI. Data tw4 reviewed: vital signs, nurses notes. Data interpreted: Pulse oximetry: Interpretation: normal. Counseling: I had a detailed discussion with the patient and/or guardian regarding: the historical points, exam findings, and any diagnostic results supporting the discharge/admit diagnosis. Special discussion: I discussed with the patient/guardian in detail that at this point there is no indication for admission to the hospital. It is understood, however, that if the symptoms persist or worsen the patient needs to return immediately for re-evaluation. 11/09 00:01 Order name: IV Saline Lock; Complete Time: 00:51 tw4 11/09 00:01 Order name: Labs collected and sent; Complete Time: 00:51 tw4 11/09 00:01 Order name: Urine Dipstick-Ancillary (obtain specimen); Complete Time: 00:51 tw4 Administered Medications: No medications were administered Disposition: 11/10/19 00:40 Discharged to Home. Impression: Urinary tract infection, site not specified. - Condition is Stable. - Discharge Instructions: Urinary Tract Infection, Adult. - Prescriptions for Macrobid 100 mg Oral Capsule - take 1 capsule by ORAL route every 12 hours for 10 days; 20 capsule. - Medication Reconciliation Form, Thank You Letter, Antibiotic Education, Prescription Opioid Use form. - Follow up: Mikael Sarah MD; When: Upon discharge from the Emergency Department; Reason: Recheck today's complaints, Re-evaluation by your physician. - Problem is new. - Symptoms have improved. Signatures: Dispatcher [employer] [facility] Mikael Sarah MD MD tw4 Judie Bass RN RN ls4 Corrections: (The following items were deleted from the chart) 00:25 00:02 Abdomen Pelvis W Con+CT.RAD.BRZ ordered. [facility] 00:53 00:40 11/10/2019 00:40 Discharged to Home. Impression: Urinary tract infection, site ls4 not specified. Condition is Stable. Forms are Medication Reconciliation Form, Thank You Letter, Antibiotic Education, Prescription Opioid Use. Follow up: Mikael Sarah; When: Upon discharge from the Emergency Department; Reason: Recheck today's complaints, Re-evaluation by your physician. Problem is new. Symptoms have improved. tw4
[2019-11-10 00:57] VITALS: BP 124/76; O2SAT 99
== END 2019-11-10 00:53 | disposition home or self-care (01) ==
LOC: ER 23:53
DX: N39.0 Urinary tract infection, site not specified (principal); F31.9 Bipolar disorder, unspecified; F20.9 Schizophrenia, unspecified; G40.909 Epilepsy, unspecified, not intractable, without status epilepticus
CPT/HCPCS: 99283

== ENCOUNTER 2019-12-28 19:04 | Inpatient (IN) | payer SELFPAY ==
[2019-12-28] MEDS ORDERED: NA CHLORIDE 0.9% 1,000 ML ONE (20:10)
[2019-12-28 20:37] LABS: Absolute Lymphocytes (CBC) 2.2 K/uL (0.7-4.9); Basophils % 0.4 % (0-1.3); Hematocrit 31.9 % (36.0-45.0); MPV 8.9 fL (7.6-11.3); RBC Red Blood Cell Count 3.41 M/uL (3.86-4.86)
[2019-12-28 21:21] LABS: ALT/SGPT 19 U/L (12-78); AST/SGOT 12 U/L (15-37); Albumin 3.4 g/dL (3.4-5.0); Alkaline Phosphatase 212 U/L (45-117); BUN Blood Urea Nitrogen 24 mg/dL (7-18); Bicarbonate 26 mmol/L (21-32); Bilirubin Direct 0.1 mg/dL (0-0.2); Bilirubin Total 0.3 mg/dL (0.2-1.0); Glucose Level 103 mg/dL (74-106); Potassium 4.1 mmol/L (3.5-5.1); Sodium Level 136 mmol/L (136-145)
--- NOTE | 2019-12-28 22:08 | EDPHYS ---
Physician Documentation [facility] Name: Ebony Smith Age: 58 yrs Sex: Female : 1960 Arrival Date: 12/28/2019 Time: 19:11 Bed 16 Private MD: ED Physician Norris Romero HPI: 12/27 19:44 This 58 yrs old Female presents to ER via Wheelchair with complaints of mh7 Decreased Appetite. 19:44 Patient states that she has been feeling shaky all over for the past 3-4 days. She also mh7 states that she has had decreased appetite over the past day. She has has generalized fatigue and weakness. She denies any headache, chest pain, abdominal pain, SOB, fever, nausea, vomiting, sick contacts, or recent travel.. Onset: The symptoms/episode began/occurred 4 day(s) ago. Severity of symptoms: At their worst the symptoms were moderate today, in the emergency department the symptoms are unchanged. The patient has experienced similar episodes in the past, a few times. Historical: - Allergies: 19:42 No Known Allergies; vc - Home Meds: 19:42 divalproex 500 mg Oral Tb24 2 tabs at bedtime [Active]; lithium carbonate 450 mg Oral vc TbER [Active]; quetiapine 400 mg Oral tab [Active]; - PMHx: 19:42 Bipolar disorder; Schizophrenia; Seizures; vc - Immunization history:: Adult Immunizations up to date. - Social history:: Smoking status: Patient denies any tobacco usage or history of. ROS: 19:44 Constitutional: Negative for fever, chills, and weight loss, Eyes: Negative for injury, mh7 pain, redness, and discharge, ENT: Negative for injury, pain, and discharge, Neck: Negative for injury, pain, and swelling, Cardiovascular: Negative for chest pain, palpitations, and edema, Respiratory: Negative for shortness of breath, cough, wheezing, and pleuritic chest pain, Back: Negative for injury and pain, : Negative for injury, bleeding, discharge, and swelling, MS/Extremity: Negative for injury and deformity, Skin: Negative for injury, rash, and discoloration, Allergy/Immunology: Negative for hives, rash, and allergies, Endocrine: Negative for neck swelling, polydipsia, polyuria, polyphagia, and marked weight changes, Hematologic/Lymphatic: Negative for swollen nodes, abnormal bleeding, and unusual bruising. Exam: 19:44 Constitutional: This is a well developed, well nourished patient who is awake, alert, mh7 and in no acute distress. Head/Face: Normocephalic, atraumatic. Eyes: Pupils equal round and reactive to light, extra-ocular motions intact. Lids and lashes normal. Conjunctiva and sclera are non-icteric and not injected. Cornea within normal limits. Periorbital areas with no swelling, redness, or edema. Neck: Trachea midline, no thyromegaly or masses palpated, and no cervical lymphadenopathy. Supple, full range of motion without nuchal rigidity, or vertebral point tenderness. No Meningismus. Chest/axilla: Normal chest wall appearance and motion. Nontender with no deformity. No lesions are appreciated. Cardiovascular: Regular rate and rhythm with a normal S1 and S2. No gallops, murmurs, or rubs. Normal PMI, no JVD. No pulse deficits. Respiratory: Lungs have equal breath sounds bilaterally, clear to auscultation and percussion. No rales, rhonchi or wheezes noted. No increased work of breathing, no retractions or nasal flaring. Abdomen/GI: Soft, non-tender, with normal bowel sounds. No distension or tympany. No guarding or rebound. No evidence of tenderness throughout. Back: No spinal tenderness. No costovertebral tenderness. Full range of motion. Skin: Warm, dry with normal turgor. Normal color with no rashes, no lesions, and no evidence of cellulitis. MS/ Extremity: Pulses equal, no cyanosis. Neurovascular intact. Full, normal range of motion. Neuro: Awake and alert, GCS 15, oriented to person, place, time, and situation. Cranial nerves II-XII grossly intact. Motor strength 5/5 in all extremities. Sensory grossly intact. Cerebellar exam normal. Normal gait. 19:44 Psych: Behavior/mood is anxious, Affect is calm, Oriented to person, place, time, Patient has no thoughts/intents to harm self or others. Judgement / Insight is normal. Memory is normal. Delusions/hallucinations are not present. 22:37 ECG was reviewed by the Attending Physician. [facility] Vital Signs: 19:35 BP 98 / 61; Pulse 64; Resp 16; Temp 99.0; Pulse Ox 97% on R/A; Weight 86.18 kg; Height vc 5 ft. 1 in. (154.94 cm); 20:00 BP 99 / 42; Pulse 57; Resp 17; Pulse Ox 100% on R/A; vc 21:00 BP 98 / 82; Pulse 53; Resp 16; Pulse Ox 98% on R/A; vc 22:00 BP 91 / 46; Pulse 58; Resp 16; Pulse Ox 100% on R/A; vc 23:00 BP 98 / 44; Pulse 56; Resp 17; Pulse Ox 100% on R/A; vc 12/28 00:00 BP 108 / 59; Pulse 59; Resp 17; Temp 98.9; Pulse Ox 100% on R/A; vc 12/27 19:35 Body Mass Index 35.90 (86.18 kg, 154.94 cm) vc MDM: 12/27 19:31 Patient medically screened. [facility] 22:05 Differential Diagnosis generalized weakness, dehydration, lithium toxicity, substance 7 abuse. Data reviewed: vital signs, nurses notes, lab test result(s), CBC, drug level(s), electrolytes, urinalysis. Data interpreted: monitor and storage bin tender: rate is 64 beats/min, Pulse oximetry: on room air is 97 %. Interpretation: normal. Counseling: I had a detailed discussion with the patient and/or guardian regarding: the historical points, exam findings, and any diagnostic results supporting the discharge/admit diagnosis, lab results, radiology results, the need for further work-up and treatment in the hospital. 12/27 19:32 Order name: Acetaminophen; Complete Time: 21:35 [facility] 12/27 19:32 Order name: Basic Metabolic Panel; Complete Time: 21:35 [facility] 12/27 19:32 Order name: CBC with Diff; Complete Time: 20:50 [facility] 12/27 19:32 Order name: ETOH Level; Complete Time: 21:35 [facility] 12/27 19:32 Order name: Hepatic Function; Complete Time: 21:35 [facility] 12/27 19:32 Order name: PT-INR [facility] 12/27 19:32 Order name: Ptt, Activated [facility] 12/27 19:32 Order name: Salicylate [facility] 12/27 19:32 Order name: Urine Drug Screen [facility] 12/27 19:34 Order name: [place]; Complete Time: 21:54 7 12/27 19:34 Order name: Valproic Acid (depakote); Complete Time: 21:35 [facility] 12/27 19:44 Order name: Glucose, Ancillary Testing; Complete Time: 20:50 [facility] 12/27 22:39 Order name: CBC with Automated Diff [facility] 12/27 22:39 Order name: CBC with Automated Diff [facility] 12/27 19:32 Order name: EKG; Complete Time: 19:32 [facility] 12/27 19:32 Order name: EKG - Nurse/Tech; Complete Time: 20:24 [facility] 12/27 19:32 Order name: IV Saline Lock; Complete Time: 20:23 [facility] 12/27 19:32 Order name: Labs collected and sent; Complete Time: 20:23 [facility] 12/27 19:32 Order name: Urine Dipstick-Ancillary (obtain specimen); Complete Time: 23:38 [facility] 12/27 22:39 Order name: CONS Pharmacy Consult [facility] 12/27 22:39 Order name: Regular [facility] 12/27 22:40 Order name: Comprehensive Metabolic Panel [facility] 12/27 22:40 Order name: Comprehensive Metabolic Panel [facility] 12/27 23:35 Order name: Urine Dipstick--Ancillary (enter results) [facility] 12/27 23:40 Order name: Urine Dipstick-Ancillary [facility] EC:37 Rate is 60 beats/min. Rhythm is regular. QRS [place] is Normal. CT interval is normal. QRS mh7 interval is normal. QT interval is prolonged at 496 msec. No Q waves. T waves are Inverted in leads V1, V2. No ST changes noted. Clinical impression: NSR w/ Non-specific ST/T Changes. Administered Medications: 20:22 Drug: NS 0.9% 1000 ml Route: IV; Rate: 1000 ml; Site: right antecubital; lp1 21:45 Follow up: IV Status: Completed infusion; IV Intake: 1000ml vc Disposition: 12/28/19 22:07 Hospitalization ordered by Saray Boewrs for Observation. Preliminary diagnosis are [place] Toxicity, Dehydration. - Bed requested for Telemetry/MedSurg (observation). - Status is Observation. vc - Condition is Stable. - Problem is new. - Symptoms are unchanged. Signatures: Dispatcher [employer] [facility] Sheron Whatley RN RN Renay Tiwari RN RN 1 Salena Butcher RN RN vc Norris Romero MD MD 7 Corrections: (The following items were deleted from the chart) 23:38 22:07 Hospitalization Ordered by Saray Bowers MD for Observation. Preliminary mw diagnosis is [place] Toxicity; Dehydration. Bed requested for Telemetry/MedSurg (observation). Status is Observation. Condition is Stable. Problem is new. Symptoms are unchanged. 7 12/28 00:48 12/27 23:38 12/28/2019 22:07 Hospitalization Ordered by Saray Bowers MD for vc Observation. Preliminary diagnosis is [place] Toxicity; Dehydration. Bed requested for Telemetry/MedSurg (observation). Status is Observation. Condition is Stable. Problem is new. Symptoms are unchanged. mw
--- NOTE | 2019-12-28 22:08 | ER ---
Nurse's Notes [facility] Name: Ebony Smith Age: 58 yrs Sex: Female : 1960 Arrival Date: 12/28/2019 Time: 19:11 Bed 16 Private MD: Diagnosis: [employer] Toxicity;Dehydration Presentation: 12/27 19:35 Chief complaint: Patient states: "My legs are to weak to walk, my belly hurts and I vc can't stop shaking for 4 days." Spouse and/or significant other states: "She has been much more shakier than normal, Last time she did this her sugar was high.". Coronavirus screen: Proceed with normal triage. Patient denies a cough. Patient denies shortness of breath or difficulty breathing. Patient denies measured and/or subjective temperature greater than 100.4F prior to today's visit. Patient denies travel on a cruise ship or to a country the [facility] currently lists as an affected area. Patient denies contact with known and/or suspected case of COVID-19. Ebola Screen: No symptoms or risks identified at this time. Initial Sepsis Screen: Does the patient meet any 2 criteria? No. Patient's initial sepsis screen is negative. Does the patient have a suspected source of infection? No. Patient's initial sepsis screen is negative. Risk Assessment: Do you want to hurt yourself or someone else? Patient reports no desire to harm self or others. Onset of symptoms was December 28, 2019. 19:35 Method Of Arrival: Wheelchair vc 19:35 Acuity: SOILA 3 vc Triage Assessment: 19:43 General: Appears in no apparent distress. uncomfortable, obese, Behavior is anxious, vc flat. Pain: Complains of pain in abdomen. Historical: - Allergies: 19:42 No Known Allergies; vc - Home Meds: 19:42 divalproex 500 mg Oral Tb24 2 tabs at bedtime [Active]; lithium carbonate 450 mg Oral vc TbER [Active]; quetiapine 400 mg Oral tab [Active]; - PMHx: 19:42 Bipolar disorder; Schizophrenia; Seizures; vc - Immunization history:: Adult Immunizations up to date. - Social history:: Smoking status: Patient denies any tobacco usage or history of. Screenin:42 Abuse screen: Denies threats or abuse. Nutritional screening: No deficits noted. vc Tuberculosis screening: No symptoms or risk factors identified. Fall Risk No fall in past 12 months (0 pts). Secondary diagnosis (15 points) seizures, IV access (20 points). Ambulatory Aid- None/Bed Rest/Nurse Assist (0 pts). Gait- Impaired (20 pts.). Mental Status- Overestimates/Forgets Limitations (15 pts.). Total Oliveira Fall Scale indicates High Risk Score (45 or more points). Fall prevention measures have been instituted. Side Rails Up X 2 Placed Close to Nursing Station 1:1 Attendant Assigned. Assessment: 19:30 General: Appears in no apparent distress. uncomfortable, obese, unkempt, Behavior is vc cooperative, anxious. Pain: Complains of pain in abdomen. Neuro: Level of Consciousness is awake, alert, obeys commands, Oriented to person, place, situation. Cardiovascular: Patient's skin is warm and dry. Respiratory: Airway is patent Respiratory effort is even, unlabored, Respiratory pattern is regular, symmetrical. GI: No signs and/or symptoms were reported involving the gastrointestinal system. : No signs and/or symptoms were reported regarding the genitourinary system. EENT: No signs and/or symptoms were reported regarding the EENT system. Derm: Skin is intact, is healthy with good turgor. Musculoskeletal: Circulation, motion, and sensation intact. Range of motion: limited in left hip and right hip. 20:00 Reassessment: Patient placed on bedpan, unable to urinate, will attempt again later. vc 21:00 Reassessment: Patient appears in no apparent distress at this time. Patient and/or vc family updated on plan of care and expected duration. Pain level reassessed. 21:45 Reassessment: blood lithium relayed to Dr Romero. rv 22:00 Reassessment: Patient appears in no apparent distress at this time. Patient and/or vc family updated on plan of care and expected duration. Pain level reassessed. 22:30 Reassessment: Patient scooted down to end of bed, patient readjusted. vc 23:00 Reassessment: Patient appears in no apparent distress at this time. Patient and/or vc family updated on plan of care and expected duration. Pain level reassessed. 23:44 Reassessment: Patients left, Fortunato Smith, [phone]. 12/28 00:10 Reassessment: Patient appears in no apparent distress at this time. Patient and/or vc family updated on plan of care and expected duration. Pain level reassessed. Patient stated she was hungry, provided with sandwich and chips, patient tolerated well. Vital Signs: 12/27 19:35 BP 98 / 61; Pulse 64; Resp 16; Temp 99.0; Pulse Ox 97% on R/A; Weight 86.18 kg; Height vc 5 ft. 1 in. (154.94 cm); 20:00 BP 99 / 42; Pulse 57; Resp 17; Pulse Ox 100% on R/A; vc 21:00 BP 98 / 82; Pulse 53; Resp 16; Pulse Ox 98% on R/A; vc 22:00 BP 91 / 46; Pulse 58; Resp 16; Pulse Ox 100% on R/A; vc 23:00 BP 98 / 44; Pulse 56; Resp 17; Pulse Ox 100% on R/A; vc 12/28 00:00 BP 108 / 59; Pulse 59; Resp 17; Temp 98.9; Pulse Ox 100% on R/A; vc 12/27 19:35 Body Mass Index 35.90 (86.18 kg, 154.94 cm) vc ED Course: 12/27 19:11 Patient arrived in ED. es 19:16 Norris Romero MD is Attending Physician. [facility] 19:30 Arm band placed on. vc 19:30 Patient has correct armband on for positive identification. Pulse ox on. NIBP on. vc 19:35 Salena Butcher RN is Primary Nurse. vc 19:40 Triage completed. vc 20:22 Inserted saline lock: 20 gauge in right antecubital area, using aseptic technique. lp1 22:06 Saray Bowers MD is Hospitalizing Provider. [facility] 12/28 00:27 No provider procedures requiring assistance completed. Patient admitted, IV remains in vc place. Administered Medications: 12/27 20:22 Drug: NS 0.9% 1000 ml Route: IV; Rate: 1000 ml; Site: right antecubital; lp1 21:45 Follow up: IV Status: Completed infusion; IV Intake: 1000ml vc Intake: 21:45 IV: 1000ml; Total: 1000ml. vc Outcome: 22:07 Decision to Hospitalize by Provider. [facility] 12/28 00:28 Admitted to Med/surg accompanied by tech, via stretcher, room 221, Report called to vc Malrene RN Condition: good Instructed on the need for admit. 00:48 Patient left the ED. Signatures: Sandy Patel Laura, RN RN lp1 Ori Mobley RN RN rv Salena Butcher RN RN vc Holmes, Maurice, MD MD mh7
[2019-12-28] MEDS ORDERED: ONDANSETRON 4 MG/2 ML VIAL IV PRN (22:37)
[2019-12-28] MEDS ORDERED: MORPHINE 2 MG/ML SYR IV PRN (22:37)
[2019-12-28] MEDS ORDERED: ACETAMINOPHEN 500 MG TAB PO PRN (22:37)
[2019-12-28 23:35] LABS: Protime INR 0.97
[2019-12-28 23:40] LABS: Urine Blood NEGATIVE (NEG); Urine Glucose NEGATIVE (NEG); Urine Protein NEGATIVE (NEG); Urine Specific Gravity 1.015 (1.005-1.030)
[2019-12-28 23:51] LABS: Barbiturates NEGATIVE (NEGATIVE); Benzodiazepines NEGATIVE (NEGATIVE); Cocaine NEGATIVE (NEGATIVE); METHAMPHETAM NEGATIVE (NEGATIVE); Methadone NEGATIVE (NEGATIVE); Opiates NEGATIVE (NEGATIVE); Phencyclidine NEGATIVE (NEGATIVE); THC Cannibis NEGATIVE (NEGATIVE)
[2019-12-29] MEDS: NA CHLORIDE 0.9% 1,000 ML IV SCH ×3 (01:09→22:57)
[2019-12-29 01:52] VITALS: BMI 35.2
[2019-12-29 05:27] LABS: Absolute Lymphocytes (CBC) 2.5 K/uL (0.7-4.9); Basophils % 0.8 % (0-1.3); Bilirubin Total 0.3 mg/dL (0.2-1.0); Hematocrit 29.2 % (36.0-45.0); Lymphocytes % 29.2 % (15.3-44.8); MPV 9.4 fL (7.6-11.3); Potassium 4.5 mmol/L (3.5-5.1); Protein, Total 6.5 g/dL (6.4-8.2); RBC Red Blood Cell Count 3.17 M/uL (3.86-4.86)
[2019-12-29] MEDS ORDERED: GLUCAGON 1 MG/VIAL IM PRN (08:31)
[2019-12-29] MEDS ORDERED: D50W 25 GM/50 ML SYRINGE/VIAL IV PRN (08:31)
[2019-12-29] MEDS: INSULIN -REGULAR HUMAN 50 UNIT/0.5 ML ML SQ SCH ×3 (11:30→21:00)
--- NOTE | 2019-12-29 13:38 | P.HP ---
Certification for Inpatient Patient admitted to: Inpatient With expected LOS: >2 Midnights Patient will require the following post-hospital care: None Practitioner: I am a practitioner with admitting privileges, knowledge of patient current condition, hospital course, and medical plan of care. Services: Services provided to patient in accordance with Admission requirements found in Title 42 Section 412.3 of the Code of Federal Regulations Patient History Date of Service: 12/28/19 Reason for admission: [place] toxicity History of Present Illness: Patient is a 58yo female who came to the hospital with lethargy and dehydration. Labs revealed lithium toxicity. Patient has a history of bipolar disorder and has been on this dose of lithium for quite a while. Follows up with her physician in [facility]. Patient has had lithium dosage for quite a while. She denies anyone renal issues. Patient also has tardive dyskinesia from possible history of antipsychotics. She does not know what caused it. At this time, she will be admitted to the hospital for further evaluation. Allergies No Known Drug Allergies Allergy (Verified 12/29/19 01:00) Unknown Home Medications: Quetiapine Fumarate [Seroquel] 400 mg PO BEDTIME 04/21/19 Atorvastatin Calcium 20 mg PO BEDTIME 12/29/19 Divalproex Sodium [Depakote ER] 500 mg PO BID 12/29/19 Lisinopril/Hydrochlorothiazide [Lisinopril-Hctz 20-12.5 mg Tab] 1 tab PO DAILY 12/29/19 [place] Carbonate [[place] Carbonate ER] 450 mg PO DAILY 12/29/19 [place] Carbonate [[place] Carbonate ER] 900 mg PO DAILY AT SUPPER 12/29/19 Metformin HCl [Glucophage] 1,000 mg PO BID 12/29/19 Quetiapine [Seroquel] 100 mg PO BID 12/29/19 - Past Medical/Surgical History Has patient received pneumonia vaccine in the past: No Diabetic: Yes -: Major depressive disorder -: Schizophrenia -: Seizure disorder -: Bipolar disorder -: Suicidal ideation -: Bilateral tubal ligation - Family History Father Medical History: Diabetes - Social History Smoking Status: Never smoker Alcohol use: No CD- Drugs: No Caffeine use: Yes Place of Residence: Home Review of Systems 10-point ROS is otherwise unremarkable Physical Examination - Vital Signs Temperature: 97.4 F Blood Pressure: 108/55 Pulse: 61 Respirations: 17 Pulse Ox (%): 98 - Physical Exam General: Alert, In no apparent distress, Oriented x3 HEENT: Atraumatic, PERRLA, Mucous membr. moist/pink, EOMI, Sclerae nonicteric Neck: Supple, 2+ carotid pulse no bruit, No LAD, Without JVD or thyroid abnormality Respiratory: Clear to auscultation bilaterally, Normal air movement Cardiovascular: Regular rate/rhythm, Normal S1 S2, No murmurs Gastrointestinal: Normal bowel sounds, Soft and benign, Non-distended, No tenderness Musculoskeletal: No clubbing, No swelling, No tenderness Integumentary: No rashes Neurological: Normal gait, Normal speech, Normal strength at 5/5 x4 extr, Normal tone, Sensation intact, Cranial nerves 3-12 intact, Normal affect Lymphatics: No axilla or inguinal lymphadenopathy - Studies Laboratory Data (last 24 hrs) 12/29/19 04:42: Sodium 138, Potassium 4.5, BUN 26 H, Creatinine 1.18, Glucose 121 H, Total Bilirubin 0.3, AST 12 L, ALT 20, Alkaline Phosphatase 204 H 12/29/19 04:42: WBC 8.7, Hgb 9.7 L, Hct 29.2 L, Plt Count 229 12/28/19 23:24: PT 11.4, INR 0.97, APTT 27.8 12/28/19 20:20: WBC 9.2, Hgb 10.6 L, Hct 31.9 L, Plt Count 254 12/28/19 20:20: Sodium 136, Potassium 4.1, BUN 24 H, Creatinine 1.25, Glucose 103, Total Bilirubin 0.3, AST 12 L, ALT 19, Alkaline Phosphatase 212 H Microbiology Data (last 24 hrs): 12/29/19 01:30 Nasopharnyx Coronavirus COVID-19 PCR - Final Assessment & Plan - Problems (Diagnosis) (1) [place] toxicity Current Visit: Yes Status: Acute (2) Dehydration Current Visit: Yes Status: Acute (3) Altered mental status Current Visit: Yes Status: Acute (4) Acute kidney injury Current Visit: No Status: Acute (5) Acute psychosis Current Visit: No Status: Acute (6) Schizophrenia Current Visit: No Status: Acute (7) Seizures Current Visit: No Status: Chronic - Plan Plan: 1. Monitor lithium levels 2. Monitor IV fluids 3. Continue monitoring labs closely 4. Monitor psychosis 5. Strict blood pressure and blood sugar control 6. GI and DVT prophylaxis Discharge Plan: Home Plan to discharge in: Greater than 2 days - Advance Directives Does patient have a Living Will: No Does patient have a Durable POA for Healthcare: Yes - Code Status/Comfort Care Code Status Assessed: Yes Code Status: Full Code Critical Care: No Time Spent Managing PTS Care (In Minutes): 40
[2019-12-29] MEDS: METFORMIN HCL 500 MG TAB PO SCH (16:49)
[2019-12-29] MEDS ORDERED: LITHIUM CARBONATE 450 MG PO SCH (17:00)
[2019-12-29] MEDS ORDERED: QUETIAPINE FUMARATE 400 MG PO SCH (21:00)
[2019-12-29] MEDS: QUETIAPINE 100MG TAB PO SCH (21:00)
[2019-12-29] MEDS ORDERED: HOME MED 1 EA UNK (Divalproex Sodium [Depakote Er] 500 MG) PO SCH (21:00)
[2019-12-29] MEDS ORDERED: ATORVASTATIN 20 MG TAB PO SCH (21:00)
[2019-12-29] MEDS ORDERED: QUETIAPINE 100MG TAB PO SCH (21:00)
[2019-12-29] MEDS ORDERED: HOME MED 1 EA UNK (Metformin Hcl [Glucophage] 1,000 MG) PO SCH (21:00)
[2019-12-29] MEDS: DIVALPROEX DR 500MG TAB PO SCH (21:01)
[2019-12-29 22:20] VITALS: O2SAT 98
[2019-12-30] MEDS: NA CHLORIDE 0.9% 1,000 ML IV SCH (05:00)
--- NOTE | 2019-12-30 06:09 | P.PN ---
Subjective Date of Service: 12/29/19 Patient's symptoms are improving. She is more awake and alert. Her lithium level is still elevated. At this time will keep her hydrated and then possible discharge tomorrow. Will decrease her lithium dose to 300 in the morning and 900 during the night. Review of Systems 10-point ROS is otherwise unremarkable Physical Examination - Vital Signs Temperature: 97.4 F Blood Pressure: 108/55 Pulse: 61 Respirations: 17 Pulse Ox (%): 98 - Physical Exam General: Alert, In no apparent distress, Oriented x3 Respiratory: Clear to auscultation bilaterally, Normal air movement Cardiovascular: Regular rate/rhythm, Normal S1 S2, No murmurs Gastrointestinal: Normal bowel sounds, Soft and benign, Non-distended, No tenderness Musculoskeletal: No clubbing, No swelling, No tenderness Integumentary: No rashes Neurological: Sensation intact, Cranial nerves 3-12 intact - Studies Microbiology Data (last 24 hrs): 12/29/19 01:30 Nasopharnyx Coronavirus COVID-19 PCR - Final Medications List Reviewed: Yes Assessment & Plan - Problems (Diagnosis) (1) [place] toxicity Current Visit: Yes Status: Acute (2) Dehydration Current Visit: Yes Status: Acute (3) Altered mental status Current Visit: Yes Status: Acute (4) Acute kidney injury Current Visit: No Status: Acute (5) Acute psychosis Current Visit: No Status: Acute (6) Schizophrenia Current Visit: No Status: Acute (7) Seizures Current Visit: No Status: Chronic - Plan Plan: Continue with current plan of care as mentioned below 1. Continue monitoring lithium levels 2. Monitor IV fluids 3. Continue out of bed and ambulating 4. Monitor psychosis; neurochecks Q 4 5. Strict blood pressure and blood sugar control 6. GI and DVT prophylaxis Discharge Plan: Home Plan to discharge in: Greater than 2 days - Advance Directives Does patient have a Living Will: No Does patient have a Durable POA for Healthcare: Yes - Code Status/Comfort Care Code Status: Full Code Critical Care: No Time Spent Managing PTS Care (In Minutes): 30
[2019-12-30 06:21] LABS: Absolute Lymphocytes (CBC) 2.5 K/uL (0.7-4.9); Basophils % 0.5 % (0-1.3); Hematocrit 30.3 % (36.0-45.0); Lymphocytes % 29.3 % (15.3-44.8); MPV 8.8 fL (7.6-11.3); RBC Red Blood Cell Count 3.27 M/uL (3.86-4.86)
[2019-12-30 06:37] LABS: Magnesium 2.4 mg/dL (1.8-2.4); Phosphorus 3.4 mg/dL (2.5-4.9); Potassium 4.3 mmol/L (3.5-5.1)
[2019-12-30] MEDS: INSULIN -REGULAR HUMAN 50 UNIT/0.5 ML ML SQ SCH ×2 (07:30→11:30)
--- NOTE | 2019-12-30 07:48 | EKG ---
Test Date: 2019-12-28 Test Time: 20:09:54 Card Folder: YFN MEASUREMENT RESULTS: Intervals: Rate: 60 AR: 166 QRSD: 104 QT: 496 QTc: 496 [place]: P: 58 AR: 166 QRS: 3 T: 50 INTERPRETIVE STATEMENTS: Normal sinus rhythm Nonspecific T wave abnormality Prolonged QT Abnormal ECG Compared to ECG 04/20/2019 13:01:35 T-wave abnormality now present ST (T wave) deviation no longer present Possible ischemia no longer present Electronically Signed On 12-30-19 07:44:49 CDT by Amari Razo
[2019-12-30] MEDS: DIVALPROEX DR 500MG TAB PO SCH (08:36)
[2019-12-30] MEDS: QUETIAPINE 100MG TAB PO SCH (08:37)
[2019-12-30] MEDS: METFORMIN HCL 500 MG TAB PO SCH (08:37)
[2019-12-30] MEDS ORDERED: LITHIUM CARBONATE 450 MG PO SCH (09:00)
[2019-12-30] MEDS ORDERED: HOME MED 1 EA UNK (Lisinopril/Hydrochlorothiazide [Lisinopril-Hctz 20-12.5 Mg Tab] 1 TAB) PO SCH (09:00)
[2019-12-30] MEDS ORDERED: LITHIUM CARBONATE 300 MG PO SCH (09:00)
[2019-12-30] MEDS ORDERED: hydroCHLOROthiazide 12.5 MG CAP PO SCH (09:00)
[2019-12-30] MEDS ORDERED: lisinopriL 20 MG TAB PO SCH (09:00)
--- NOTE | 2019-12-30 11:30 | P.DS ---
Admission Date: 12/29/19 Discharge Date: 12/30/19 Disposition: ROUTINE DISCHARGE Discharge Condition: GOOD Reason for Admission: [place] toxicity - Problems (1) Altered mental status Current Visit: Yes Status: Acute (2) Dehydration Current Visit: Yes Status: Acute (3) [place] toxicity Current Visit: Yes Status: Acute (4) Acute kidney injury Current Visit: No Status: Acute Brief History of Present Illness: History of Present Illness: Patient is a 58yo female who came to the hospital with lethargy and dehydration. Labs revealed lithium toxicity. Patient has a history of bipolar disorder and has been on this dose of lithium for quite a while. Follows up with her physician in [facility]. Patient has had lithium dosage for quite a while. She denies anyone renal issues. Patient also has tardive dyskinesia from possible history of antipsychotics. She does not know what caused it. At this time, she will be admitted to the hospital for further evaluation. Hospital Course: On admission her lithium level was elevated at 2.7. She was started on gentle IV fluids. Her mental status and tardive dyskinesia symptoms slowly improved. She is more awake , alert and conversant now. was discussed with as stated patient seems back to her baseline. She was advised to hold lithium for now. It is unclear if she was adherent to Depakote at home but this was restarted Vital Signs/Physical Exam: Temp Pulse Resp BP Pulse Ox 97.9 F 57 19 124/56 L 98 12/30/19 08:00 12/30/19 08:37 12/30/19 08:00 12/30/19 08:37 12/30/19 08:00 General: Alert, In no apparent distress, Oriented x3 HEENT: Atraumatic, Normocephalic, PERRLA Neck: Supple, 2+ carotid pulse no bruit, JVD not distended Respiratory: Clear to auscultation bilaterally, Normal air movement Cardiovascular: Normal pulses, Regular rate/rhythm, Normal S1 S2 Gastrointestinal: Normal bowel sounds, Soft and benign, Non-distended Musculoskeletal: No clubbing, No swelling Integumentary: No rashes, No breakdown Neurological: Normal strength at 5/5 x4 extr, Normal tone, Abnormal speech (slowed , bit hoarse) Laboratory Data at Discharge: WBC 8.4 K/uL (4.3-10.9) 12/30/19 06:05 Hgb 10.1 g/dL (12.0-15.0) L 12/30/19 06:05 Hct 30.3 % (36.0-45.0) L 12/30/19 06:05 Plt Count 245 K/uL (152-406) 12/30/19 06:05 PT 11.4 SECONDS (9.5-12.5) 12/28/19 23:24 INR 0.97 12/28/19 23:24 APTT 27.8 SECONDS (24.3-36.9) 12/28/19 23:24 Sodium 141 mmol/L (136-145) 12/30/19 06:05 Potassium 4.3 mmol/L (3.5-5.1) 12/30/19 06:05 BUN 17 mg/dL (7-18) 12/30/19 06:05 Creatinine 0.97 mg/dL (0.55-1.3) 12/30/19 06:05 Glucose 115 mg/dL (74-106) H 12/30/19 06:05 Phosphorus 3.4 mg/dL (2.5-4.9) 12/30/19 06:05 Magnesium 2.4 mg/dL (1.8-2.4) 12/30/19 06:05 Total Bilirubin 0.3 mg/dL (0.2-1.0) 12/29/19 04:42 AST 12 U/L (15-37) L 12/29/19 04:42 ALT 20 U/L (12-78) 12/29/19 04:42 Alkaline Phosphatase 204 U/L (45-117) H 12/29/19 04:42 Home Medications: Quetiapine Fumarate [Seroquel] 400 mg PO BEDTIME 04/21/19 Atorvastatin Calcium 20 mg PO BEDTIME 12/29/19 Divalproex Sodium [Depakote ER] 500 mg PO BID 12/29/19 [place] Carbonate [[place] Carbonate ER] 450 mg PO DAILY 12/29/19 Metformin HCl [Glucophage] 1,000 mg PO BID 12/29/19 Quetiapine [Seroquel*] 100 mg PO BID 12/29/19 [place] Carbonate [[place] Carbonate ER] 450 mg PO DAILY AT SUPPER #60 12/30/19 New Medications: [place] Carbonate [[place] Carbonate ER] 450 mg PO DAILY AT SUPPER #60 Patient Discharge Instructions: OK TO DC IV AND DC HOME. FOLLOW-UP WITH PRIMARY CARE PROVIDER IN 1-2 WEEKS. FOLLOW-UP WITH local Psychiatrist IN 1-2 WEEKS. RETURN TO THE ER IF symptoms worsen. CALL or TEXT DR. RODRIGUEZ AT [phone] IF ANY QUESTIONS REGARDING HOSPITAL STAY. PLEASE CALL THE FLOOR AT [phone] IF ANY MEDICATION OR NURSING QUESTIONS. Diet: Regular Activity: Fall precautions Time spent managing pt's care (in minutes): 35
[2019-12-30 13:50] VITALS: BP 114/66; TEMP 97.6
== END 2019-12-30 12:43 | disposition home or self-care (01) | DRG 918 ==
LOC: ER 19:04 → ERHOLD 22:41 → 2ND 12-29 00:26 → OBSVTOIN 12-29 09:24
PROVIDERS: ADMIT Hospitalist; ATTEND Hospitalist
DX: T43.591A Poisoning by other antipsychotics and neuroleptics, accidental (unintentional), initial encounter (principal); N17.9 Acute kidney failure, unspecified; F23 Brief psychotic disorder; E86.0 Dehydration; F31.9 Bipolar disorder, unspecified; E66.9 Obesity, unspecified; Z68.35 Body mass index [BMI] 35.0-35.9, adult; Z98.51 Tubal ligation status; Z20.828 Contact with and (suspected) exposure to other viral communicable diseases; Z79.84 Long term (current) use of oral hypoglycemic drugs; Z79.899 Other long term (current) drug therapy
CPT/HCPCS: 36415; 80048; 80053; 80076; 80164; 80178; 80307; 80320; 80329; 81003; 82947; 83735; 84100; 85025; 85610; 85730; 93005; 96360; 99285; G0378; J7030; U0002

== ENCOUNTER 2020-01-30 15:30 | Emergency (ER) | payer SELFPAY ==
[2020-01-30] MEDS ORDERED: KETOROLAC 30 MG/ML INJ ONE (18:01)
[2020-01-30] MEDS ORDERED: ONDANSETRON 4 MG/2 ML VIAL ONE (18:01)
[2020-01-30 18:02] LABS: Absolute Lymphocytes (CBC) 3.3 K/uL (0.7-4.9); Basophils % 0.7 % (0-1.3); Hematocrit 31.2 % (36.0-45.0); Lymphocytes % 40.6 % (15.3-44.8); RBC Red Blood Cell Count 3.47 M/uL (3.86-4.86)
[2020-01-30 18:42] LABS: Urine Bacteria <20 /HPF (<20); Urine Culture Reflex Order REFLEXED; Urine Mucus 1+ /HPF (NONE SEEN); Urine RBC <5 /HPF (NONE SEEN)
--- NOTE | 2020-01-30 18:42 | RAD REPORT ---
EXAM DESCRIPTION: CTAbdomen Pelvis W Contrast - 01/30/2020 6:31 pm CLINICAL HISTORY: Abdominal pain. back pain, abd pain COMPARISON: No comparisons TECHNIQUE: Biphasic CT imaging of the abdomen and pelvis was performed with 100 ml non-ionic IV cont rast. All CT scans are performed using dose optimization technique as appropriate and may include automated exposure control or mA/KV adjustment according to patient size. FINDINGS: The lung bases are clear.Small hiatal hernia. The liver, spleen, pancreas, adrenal glands and kidneys are within normal limits. No bowel obstruction, free air, free fluid or abscess. The appendix is normal. No evidence of signi ficant lymphadenopathy. Moderate lumbosacral degenerative changes. IMPRESSION: No acute intra-abdominal or pelvic finding.
[2020-01-30 18:48] LABS: ALT/SGPT 33 U/L (12-78); AST/SGOT 39 U/L (15-37); Albumin 3.2 g/dL (3.4-5.0); Alkaline Phosphatase 97 U/L (45-117); BUN Blood Urea Nitrogen 20 mg/dL (7-18); Bicarbonate 28 mmol/L (21-32); Bilirubin Direct < 0.1 mg/dL (0-0.2); Bilirubin Total 0.2 mg/dL (0.2-1.0); Glucose Level 103 mg/dL (74-106); Lipase 139 U/L (73-393); Potassium 3.8 mmol/L (3.5-5.1); Protein, Total 7.1 g/dL (6.4-8.2); Sodium Level 140 mmol/L (136-145)
--- NOTE | 2020-01-30 18:57 | ER ---
Nurse's Notes [facility] Name: Ebony Smith Age: 59 yrs Sex: Female : 1960 Arrival Date: 01/30/2020 Time: 15:35 Bed 24 Private MD: Diagnosis: Unspecified abdominal pain;Low back pain Presentation: 01/29 16:09 Chief complaint: Patient states: Back and abdominal pain since 2 weeks ago. Denies N/V. ca1 Reports diarrhea on 1 day. Reports burning with urination. Denies fever. Coronavirus screen: Proceed with normal triage. Patient denies a cough. Patient denies shortness of breath or difficulty breathing. Patient denies measured and/or subjective temperature greater than 100.4F prior to today's visit. Patient denies travel on a cruise ship or to a country the [facility] currently lists as an affected area. Patient denies contact with known and/or suspected case of COVID-19. Ebola Screen: Patient negative for fever greater than or equal to 101.5 degrees Fahrenheit, and additional compatible Ebola Virus Disease symptoms Patient denies exposure to infectious person. Patient denies travel to an Ebola-affected area in the 21 days before illness onset. No symptoms or risks identified at this time. Initial Sepsis Screen: Does the patient meet any 2 criteria? No. Patient's initial sepsis screen is negative. Does the patient have a suspected source of infection? No. Patient's initial sepsis screen is negative. Risk Assessment: Do you want to hurt yourself or someone else? Patient reports no desire to harm self or others. Onset of symptoms was January 30, 2020. 16:09 Method Of Arrival: Ambulatory ca1 16:09 Acuity: SOILA 3 ca1 Historical: - Allergies: 16:14 No Known Allergies; ca1 - Home Meds: 16:14 metformin 1,000 mg Oral tab 1 tab 2 times per day [Active]; quetiapine 400 mg Oral tab ca1 [Active]; divalproex 500 mg Oral Tb24 2 tabs at bedtime [Active]; lisinopril-hydrochlorothiazide 20-12.5 mg oral tab 1 tab once daily [Active]; levothyroxine 50 mcg tab 1 tab once daily [Active]; - PMHx: 16:14 Bipolar disorder; Schizophrenia; Seizures; ca1 - Immunization history:: Adult Immunizations not up to date. - Social history:: Smoking status: Patient denies any tobacco usage or history of. Screenin:01 Abuse screen: Denies threats or abuse. Nutritional screening: No deficits noted. vc Tuberculosis screening: No symptoms or risk factors identified. Fall Risk None identified. Assessment: 17:00 General: Appears in no apparent distress. uncomfortable, Behavior is calm, cooperative, vc Patient singing loudly from room.. Pain: Complains of pain in back and abdomen Pain does not radiate. Pain currently is 8 out of 10 on a pain scale. Neuro: Level of Consciousness is awake, obeys commands, Oriented to person, place, time, situation. Cardiovascular: Capillary refill < 3 seconds Patient's skin is warm and dry. Respiratory: Airway is patent Respiratory effort is even, unlabored, Respiratory pattern is regular, symmetrical. GI: Reports lower abdominal pain, diarrhea, Patient currently denies vomiting. : No signs and/or symptoms were reported regarding the genitourinary system. Derm: Skin is intact, is healthy with good turgor. Musculoskeletal: Circulation, motion, and sensation intact. Range of motion: intact in all extremities. 18:00 Reassessment: Patient appears in no apparent distress at this time. Patient and/or vc family updated on plan of care and expected duration. Pain level reassessed. Patient is alert, oriented x 3, equal unlabored respirations, skin warm/dry/pink. Vital Signs: 16:09 BP 110 / 56; Pulse 76; Resp 18 S; Temp 97.6; Pulse Ox 100% on R/A; Weight 86.18 kg (R); ca1 Height 5 ft. 4 in. (162.56 cm) (R); 18:00 BP 120 / 76; Pulse 62; Resp 18; Pulse Ox 100% ; vc 19:00 BP 111 / 57; Pulse 64; Resp 18; Pulse Ox 99% on R/A; vc 16:09 Body Mass Index 32.61 (86.18 kg, 162.56 cm) ca1 ED Course: 15:35 Patient arrived in ED. mr 16:11 Triage completed. ca1 16:14 Arm band placed on right wrist. ca1 17:04 Jaime Sinha PA is PHCP. cp 17:04 Roderick Kimble MD is Attending Physician. cp 17:06 Calcote, Salena, RN is Primary Nurse. vc 17:30 Patient has correct armband on for positive identification. personnel monitor on. Pulse vc ox on. 19:22 No provider procedures requiring assistance completed. IV discontinued, intact, vc bleeding controlled, No redness/swelling at site. Pressure dressing applied. Administered Medications: 17:56 Drug: TORadol - Ketorolac 15 mg Route: IVP; Site: left antecubital; vc 18:19 Follow up: Response: No adverse reaction vc 17:56 Drug: Zofran (Ondansetron) 4 mg Route: IVP; Site: left antecubital; vc 18:19 Follow up: Response: No adverse reaction vc Outcome: 18:56 Discharge ordered by MD. cp 19:23 Discharged to home ambulatory. vc 19:23 Condition: good 19:23 Discharge instructions given to patient, Instructed on discharge instructions, follow up and referral plans. no drinking with medication, no driving heavy equipment, medication usage, Demonstrated understanding of instructions, follow-up care, medications, Prescriptions given X 2. 19:23 Patient left the ED. ss Signatures: Shelli Lara Shelby, RN RN ss Jaime Sinha, Paloma Lobato cp, RN RN ca1 Salena Butcher, MARTINE RN vc Corrections: (The following items were deleted from the chart) 16:14 16:09 Social history: Smoking status: ca1 ca1 18:45 17:00 Reassessment: Patient appears in no apparent distress at this time. Patient vc and/or family updated on plan of care and expected duration. Pain level reassessed. Patient is alert, oriented x 3, equal unlabored respirations, skin warm/dry/pink. vc
--- NOTE | 2020-01-30 18:57 | EDPHYS ---
Physician Documentation [facility] Name: Ebony Smith Age: 59 yrs Sex: Female : 1960 Arrival Date: 01/30/2020 Time: 15:35 Bed 24 Private MD: ED Physician Roderick Kimble HPI: 01/29 17:30 This 59 yrs old Female presents to ER via Ambulatory with complaints of Back cp Pain, Abdominal Pain. 17:30 The patient presents with pain that is acute, with no known mechanism of injury. cp 17:30 The symptoms are located in the mid back area. cp 17:30 Onset: The symptoms/episode began/occurred 2 week(s) ago. cp 17:30 Associated signs and symptoms: Pertinent positives: abdominal pain, Pertinent cp negatives: chest pain, constipation, fever, hematuria, incontinence, numbness, urinary retention, weakness. The problem was sustained from unknown cause. Modifying factors: the patient symptoms are aggravated by bending. Historical: - Allergies: 16:14 No Known Allergies; ca1 - Home Meds: 16:14 metformin 1,000 mg Oral tab 1 tab 2 times per day [Active]; quetiapine 400 mg Oral tab ca1 [Active]; divalproex 500 mg Oral Tb24 2 tabs at bedtime [Active]; lisinopril-hydrochlorothiazide 20-12.5 mg oral tab 1 tab once daily [Active]; levothyroxine 50 mcg tab 1 tab once daily [Active]; - PMHx: 16:14 Bipolar disorder; Schizophrenia; Seizures; ca1 - Immunization history:: Adult Immunizations not up to date. - Social history:: Smoking status: Patient denies any tobacco usage or history of. ROS: 17:35 Constitutional: Negative for body aches, chills, fever, poor PO intake. cp 17:35 Eyes: Negative for injury, pain, redness, and discharge. cp 17:35 ENT: Negative for ear pain, sore throat, difficulty swallowing, difficulty handling cp secretions. 17:35 Cardiovascular: Negative for chest pain, edema, palpitations. 17:35 Respiratory: Negative for cough, shortness of breath, wheezing. 17:35 Abdomen/GI: Positive for abdominal pain, Negative for nausea, vomiting, and diarrhea, constipation, bowel incontinence. 17:35 Back: Positive for pain at rest, pain with movement. 17:35 : Negative for hematuria, bladder incontinence, vaginal bleeding, vaginal discharge. 17:35 Neuro: Negative for dizziness, headache, numbness, tingling, weakness. 17:35 All other systems are negative. Exam: 17:35 Head/Face: Normocephalic, atraumatic. cp 17:35 Constitutional: The patient appears in no acute distress, alert, awake, cp non-diaphoretic, non-toxic, well developed, well nourished. 17:35 Eyes: Periorbital structures: appear normal, Conjunctiva: normal, no exudate, no cp injection, Sclera: no appreciated abnormality, Lids and lashes: appear normal, bilaterally. 17:35 ENT: External ear(s): are unremarkable, Nose: is normal, Mouth: Lips: moist, Oral mucosa: moist, Posterior pharynx: is normal, airway is patent. 17:35 Neck: ROM/movement: is normal, is supple, without pain, no range of motions limitations. 17:35 Chest/axilla: Inspection: normal, Palpation: is normal, no crepitus, no tenderness. 17:35 Cardiovascular: Rate: normal, Rhythm: regular, Edema: is not appreciated. 17:35 Respiratory: the patient does not display signs of respiratory distress, Respirations: normal, no use of accessory muscles, no retractions, labored breathing, is not present, Breath sounds: are clear throughout, no decreased breath sounds. 17:35 Abdomen/GI: Inspection: abdomen appears normal, Bowel sounds: active, all quadrants. 17:35 Back: pain, that is moderate, of the mid back area, ROM is painful, with flexion, cp vertebral tenderness, is not appreciated, Straight leg raises: of both lower extremities does not illicit pain. 17:35 Skin: no rash present. 17:35 Neuro: Orientation: to person, place \T\ time. Mentation: is normal, Motor: moves all fours, strength is normal, Sensation: is normal, Gait: is steady, Deep tendon reflexes are 2+ (normal) in the right patellar, right Achilles, left patellar and left Achilles. Vital Signs: 16:09 BP 110 / 56; Pulse 76; Resp 18 S; Temp 97.6; Pulse Ox 100% on R/A; Weight 86.18 kg (R); ca1 Height 5 ft. 4 in. (162.56 cm) (R); 18:00 BP 120 / 76; Pulse 62; Resp 18; Pulse Ox 100% ; vc 19:00 BP 111 / 57; Pulse 64; Resp 18; Pulse Ox 99% on R/A; vc 16:09 Body Mass Index 32.61 (86.18 kg, 162.56 cm) ca1 MDM: 17:07 Patient medically screened. cp 18:00 Differential diagnosis: Cholelithiasis chronic back pain, Hydronephrosis Pyelonephritis cp ruptured disc, Ureterolithiasis. 18:55 Data reviewed: vital signs, nurses notes, lab test result(s), radiologic studies, CT cp scan. 18:55 Counseling: I had a detailed discussion with the patient and/or guardian regarding: the cp historical points, exam findings, and any diagnostic results supporting the discharge/admit diagnosis, lab results, radiology results, to return to the emergency department if symptoms worsen or persist or if there are any questions or concerns that arise at home. Response to treatment: the patient's symptoms have markedly improved after treatment, and as a result, I will discharge patient. Special discussion: Based on the patient's Hx, exam, and Dx evaluation, there is no indication for emergent surgery or inpatient Tx. It is understood by the patient/guardian that if the Sx's persist or worsen they need to return immediately for re-evaluation. 01/29 17:23 Order name: Basic Metabolic Panel 01/29 17:23 Order name: CBC with Diff 01/29 17:23 Order name: Hepatic Function cp 01/29 17:23 Order name: Lipase cp 01/29 17:23 Order name: Urine Microscopic Only cp 01/29 18:42 Order name: Urine Microscopic Only; Complete Time: 18:51 EDMS 01/29 18:51 Interpretation: Normal except: UWBC 5-10; SQEPI 5-10. 01/29 17:23 Order name: CT Abd/Pelvis - IV Contrast Only 01/29 18:43 Order name: CBC with Automated Diff; Complete Time: 18:51 EDMS 01/29 18:51 Interpretation: Normal except: RBC 3.47; HGB 10.7; HCT 31.2. cp 01/29 18:48 Order name: CT; Complete Time: 18:51 EDMS 01/29 18:52 Interpretation: Report reviewed. 01/29 18:48 Order name: Basic Metabolic Panel; Complete Time: 18:51 [facility] 01/29 18:52 Interpretation: Normal except: BUN 20; GFR 62. 01/29 18:48 Order name: Liver (Hepatic) Function; Complete Time: 18:51 [facility] 01/29 18:52 Interpretation: Normal except: AST 39; ALB 3.2; GLOB 3.9; A/G 0.8. 01/29 18:48 Order name: Lipase; Complete Time: 18:51 [facility] 01/29 17:23 Order name: IV Saline Lock; Complete Time: 17:49 01/29 17:23 Order name: Labs collected and sent; Complete Time: 17:49 01/29 17:23 Order name: Urine Dipstick-Ancillary (obtain specimen); Complete Time: 17:49 01/29 18:09 Order name: Labs - recollect needed: green top recollect; Complete Time: 18:19 eb Administered Medications: 17:56 Drug: TORadol - Ketorolac 15 mg Route: IVP; Site: left antecubital; vc 18:19 Follow up: Response: No adverse reaction vc 17:56 Drug: Zofran (Ondansetron) 4 mg Route: IVP; Site: left antecubital; vc 18:19 Follow up: Response: No adverse reaction vc Disposition: 01/30 15:56 Co-signature as Attending Physician, Roderick Kimble MD I agree with the assessment and kdr plan of care. Disposition: 01/30/20 18:56 Discharged to Home. Impression: Unspecified abdominal pain, Low back pain. - Condition is Stable. - Discharge Instructions: Abdominal Pain, Adult, Back Pain, Adult, Musculoskeletal Pain, Back Exercises. - Prescriptions for Naprosyn 500 mg Oral Tablet - take 1 tablet by ORAL route 2 times per day take with food; 20 tablet. Cyclobenzaprine 10 mg Oral Tablet - take 1 tablet by ORAL route every 8 hours As needed; 15 tablet. - Medication Reconciliation Form, Thank You Letter, Antibiotic Education, Prescription Opioid Use form. - Follow up: Private Physician; When: 2 - 3 days; Reason: Recheck today's complaints. - Problem is new. - Symptoms have improved. Signatures: Dispatcher [facility] Roderick Kimble MD MD kdr Smirch, Shelby, RN RN ss Jaime Sinha PA PA cp Ashleigh Murphy Cheryl, RN RN ca1 Salena Butcher RN RN vc Corrections: (The following items were deleted from the chart) 01/29 16:14 16:09 Social history: Smoking status: ca1 ca1 19:23 18:56 01/30/2020 18:56 Discharged to Home. Impression: Unspecified abdominal pain; Low ss back pain. Condition is Stable. Forms are Medication Reconciliation Form, Thank You Letter, Antibiotic Education, Prescription Opioid Use. Follow up: Private Physician; When: 2 - 3 days; Reason: Recheck today's complaints. Problem is new. Symptoms have improved. cp 01/30 06:32 06:31 Constitutional: The patient appears in no acute distress, alert, awake, cp non-diaphoretic, non-toxic, well developed, well nourished, cp 12:11 06:31 Head/Face: Normocephalic, atraumatic. cp cp
[2020-01-30 19:28] VITALS: BP 110/56; TEMP 97.6; O2SAT 100
--- OUTSIDE RECORDS SUMMARY | 2020-01-30 19:47 | XMS REPORT | Continuity of Care Document ---
:1960 Author Organization [facility] Address [address] [place] [address] [address]. [address] [place] [address] Care Team Providers Name Role Phone Unavailable Unavailable Unavailable Problems This patient has no known problems. Allergies, Adverse Reactions, Alerts This patient has no known allergies or adverse reactions. Medications This patient has no known medications. Procedures This patient has no known procedures. Results Test Description Test Time Test Comments Results Result Sourc e Comments SCR MAMM 2018-10-16 - SCR MAMM BILATERAL BILATERAL NU 15:01:56 NU CAD CAD DIGITAL DIGITALBILATERAL DIGITAL SCREENING MAMMOGRAM 3D/2D WITH CAD: 10/12/2018CLINICAL: Asymptomatic. Digital breast tomosynthesis was performed in addition to routine CC and MLO views. Current mammographic images were evaluated by either a [employer] M-Vu or a [employer] ImageChecker CAD (computer aided detection system). Comparison is made to exam dated 07/22/2016 mammogram - [facility]. The tissue of both breasts is heterogeneously dense. This may lower the sensitivity of mammography. There are benign vascular calcifications in both breasts. No suspicious mass, architectural distortion, malignant type calcification, or lymph node abnormality detected. Breast architecture is stable compared to prior exams.IMPRESSION: BENIGNThere is no mammographic evidence of malignancy. Resume annual screening mammography in one year. Scott Lozano M.D. et/penrad:10/16/2018 15:01:56 Service Counter Cashier: Rhianna Roberson MM, [facility]: BIRADS 1-2 Normal Mammogram BI-RADS: 2 Benign
== END 2020-01-30 19:23 | disposition home or self-care (01) ==
LOC: ER 15:30
DX: R10.30 Lower abdominal pain, unspecified (principal); F20.9 Schizophrenia, unspecified
CPT/HCPCS: 36415; 74177; 80048; 80076; 81015; 82565; 83690; 85025; 87086; 87088; 96374; 96375; 99284; J2405; Q9967